=== PATIENT | male | born 1955 | race Caucasian/White ===

== ENCOUNTER 2017-08-19 13:19 | Inpatient (IN) | payer OTHER ==
[2017-08-19 14:06] VITALS: BMI 31.0
--- NOTE | 2017-08-19 16:48 | PDOC ---
Attending Attestation - HPI HPI: 08/19/17 17:38 The patient is a 62-year-old male, with a significant past medical history of NIDDM, Psoriasis, HTN who presents to the ED with rectal bleeding that began this morning. When the patient passed a bowel movement this morning and states that he noted his stool was dark red. While in the ED, the patient used the bathroom and states that the blood is now bright red. <Mayela Joseph - Last Filed: 08/19/17 17:38> - Resident Resident Name: Stanley Cardona - ED Attending Attestation I have performed the following: I have examined & evaluated the patient, The case was reviewed & discussed with the resident, I agree w/resident's findings & plan, Exceptions are as noted - Physicial Exam PE: 08/19/17 18:30 Patient is awake and alert, obese, hemodynamically stable, in no distress. Normocephalic, atraumatic PERRLA, EOMI, CTA, rrr sft, nt, nd - Medical Decision Making 08/19/17 18:31 Patient is a 62-year-old male with history of diabetes, psoriasis and heavy smoking who presents with several episodes of painless rectal bleeding with initially maroon blood followed by bright red blood per rectum. In the ER, patient is hemodynamically stable without evidence of active bleeding. Patient is noted to be guaiac positive. First CBC reveals H&H 14 and 43 respectively. I do not suspect ischemic colitis or inflammatory bowel disease at this time. Patient will require colonoscopy with GI. Will admit for serial CBCs, GI evaluation and treatment. <Balwinder Zuñiga - Last Filed: 08/19/17 18:32>
--- NOTE | 2017-08-19 17:21 | PDOC ---
History of Present Illness - General Chief Complaint: Rectal Bleed Stated Complaint: BLOOD IN URINE/ STOOL Time Seen by Provider: 08/19/17 16:48 - History of Present Illness Initial Comments: Mr Martino is a 62yo M with a PMHx of NIDDM, Psoriasis, HTN who presents w/ painless hematochezia since this morning. This morning it was dark red, but while going to bathroom in ER, noticed the blood was bright red. Denies prior constipation or straining. Denies hx of hemorrhoids. Not on anticoagulants. However, has taken multiple NSAIDs over the past 4 days for tooth pain. Daily 1 pack per day smoker. Last colonoscopy was [address] Quevedo, told it was normal. No hx of UC/Crohns. Denies abdominal pain. Denies hematemesis, hemoptysis. Allergies - NKDA SH - Daily 1ppd smoker. No alcohol PMD - Dr[facility] Shana Fritz ([facility]) Past History - Past Medical History Allergies/Adverse Reactions: Allergies Allergy/AdvReac Type Severity Reaction Status Date / Time No Known Allergies Allergy Verified 09/28/15 16:05 Home Medications: Ambulatory Orders Amlodipine Besylate [Norvasc -] 10 mg PO DAILY 08/19/17 Sitagliptin Phosphate [Januvia] 100 mg PO DAILY 08/19/17 Anemia: No Asthma: No Cancer: No Cardiac Disorders: No CVA: No COPD: No CHF: No Dementia: No Diabetes: Yes (NIDDM) GI Disorders: No Disorders: No HTN: Yes Hypercholesterolemia: Yes Liver Disease: No Seizures: No Thyroid Disease: No - Surgical History Abdominal Surgery: Yes (HERNIA) Appendectomy: Yes Cardiac Surgery: No Cholecystectomy: Yes Lung Surgery: No Neurologic Surgery: No Orthopedic Surgery: No - Suicide/Smoking/Psychosocial Hx Smoking Status: Yes Smoking History: Never smoked Have you smoked in the past 12 months: Yes Number of Cigarettes Smoked Daily: 5 If you are a former smoker, when did you quit?: 2 weeks ago 'Breaking Loose' booklet given: 02/02/15 Hx Alcohol Use: No Drug/Substance Use Hx: No Substance Use Type: None Hx Substance Use Treatment: No *Physical Exam - Vital Signs Last Vital Signs Temp Pulse Resp BP Pulse Ox 97.6 F 79 16 138/84 99 08/19/17 14:04 08/19/17 14:04 08/19/17 14:04 08/19/17 14:04 08/19/17 14:04 - Physical Exam Comments: GEN: AAOx3, NAD, Lying comfortably HEENT: PERRLA, EOMi CV: S1, S2, RRR LUNG: CTABL ABD: Soft, NT, ND, normoactive BS MSK: No edema, numerous psoriatic lesions on body : No visible external hemorrhoids, no fissures On GUZMAN, dark stool w/ streaks of blood NEURO: CN 2-12 intact. No MSK or sensation deficits ED Treatment Course - LABORATORY CBC & Chemistry Diagram: 08/19/17 17:20 08/19/17 17:33 Medical Decision Making - Medical Decision Making 62yo M who presented w/ painless melena after taking multiple NSAIDs, but now has BRBPR. Vitals are stable. No hemorrhoids/fissures on physical exam. DDx include: Diverticular bleed, Colitis, Colon CA. Because bleeding is non- painful, unlikely diagnosis includes IBD, Ischemic colitis -- CBC, CMP, Coags, T&S -- Prior colonoscopy performed by Dr. Quevedo, will place call to Dr. Quevedo -- Anticipate admission for possible scope. PCP is outside 08/19/17 18:[address] Millan. Case discussed and accepted Attempting to reach Dr. Quevedo second time. Dr. Zuñiga will takover the case from here. *DC/Admit/Observation/Transfer Diagnosis at time of Disposition: Hematochezia - Discharge Dispostion Condition at time of disposition: Stable Admit: Yes - Referrals Referrals: Shana Miner MD [Primary Care Provider] - - Patient Instructions - Post Discharge Activity
[2017-08-19 17:37] LABS: URINE APPEARANCE CLEAR; URINE BILIRUBIN NEGATIVE (NEGATIVE); URINE BLOOD NEGATIVE (NEGATIVE); URINE COLOR YELLOW; URINE GLUCOSE (UA) NEGATIVE (NEGATIVE); URINE KETONE NEGATIVE (NEGATIVE); URINE LEUK ESTERASE NEGATIVE (NEGATIVE); URINE NITRITE NEGATIVE (NEGATIVE); URINE UROBILINOGEN NEGATIVE mg/dL (0.2-1.0)
[2017-08-19 17:38] LABS: EOS % 3.1 % (0-4.5); HEMATOCRIT 43.3 % (35.4-49); HEMOGLOBIN 14.6 GM/dL (11.7-16.9); MCH 28.4 pg (25.7-33.7); MCHC 33.6 g/dl (32.0-35.9); MEAN CELL VOLUME 84.4 fl (80-96); MEAN PLT VOLUME 8.7 fl (7.5-11.1); NEUT % 70.9 % (42.8-82.8); PLATELET COUNT 261 K/MM3 (134-434); RBC 5.13 M/mm3 (4.00-5.60); WHITE BLOOD COUNT 10.3 K/mm3 (4.0-10.0)
[2017-08-19 17:39] LABS: URINE PROTEIN 1+ (NEGATIVE)
[2017-08-19 18:06] LABS: INR 0.93 (0.82-1.09); PROTHROMBIN TIME (PATIENT) 10.5 SEC (9.98-11.88)
[2017-08-19 18:16] LABS: ALBUMIN 4.1 g/dl (3.4-5.0); ALK PHOS 59 U/L (45-117); ANION GAP 9 (8-16); BILIRUBIN,TOTAL 0.4 mg/dL (0.2-1.0); BLOOD UREA NITROGEN 17 mg/dL (7-18); CALCIUM 8.6 mg/dL (8.5-10.1); CHLORIDE 108 mmol/L (98-107); CO2 25 mmol/L (21-32); CREATININE 0.9 mg/dL (0.7-1.3); GLUCOSE,RANDOM 107 mg/dL (74-106); POTASSIUM 4.2 mmol/L (3.5-5.1); SGOT/AST 20 U/L (15-37); SGPT/ALT 39 U/L (12-78); SODIUM 142 mmol/L (136-145); TOT PROT 7.5 g/dl (6.4-8.2)
[2017-08-19 19:02] LABS: EPI CELLS RARE /HPF (FEW); URINE BACTERIA RARE /hpf (NONE SEEN); URINE HYALINE CAST 2 /lpf; URINE MUCUS FEW
[2017-08-19] MEDS ORDERED: SODIUM CHLORIDE 1,000 ML IV SCH ×2 (19:15→21:30)
--- NOTE | 2017-08-19 21:38 | HP ---
CHIEF COMPLAINT: "I have blood in my stool" PCP:Dr. Shana Fritz ([facility]) HISTORY OF PRESENT ILLNESS: This is a 62yo M with a PMH of NIDDM, Psoriasis, HTN who presents due to 2 episodes of painless hematochezia since this morning. First BM had some dark blood and the second one had a smaller amount of bright red blood. both stools were well formed and patient reports being constipated a few days prior. He endorces having a similar episode once 7 yrs ago, whihc he attributed to hemorrhoids which were never officially diagnosed. he had a colonoscopy with Dr Quevedo 5-7 yrs ago which was unremarkable and was told to f/u in 5 yrs. Rectal exam in ed was negative for lesions but was occult blood positive. He denies abd pain, gerd, diarrhea, n/v, back pain, f/c, sick contacts. He denies weight loss. He denies cp, sob, cough, rhonorrhea, sore throat, myalgia, arthralgia. no family history of gi disorder. ER course was notable for: (1)labs (2)ekg, cxr:unremarkable (3)ivf Recent Travel: denies PAST MEDICAL HISTORY:as above PAST SURGICAL HISTORY: appendectomy, cholecystectomy 40 yrs ago Social History: lives at home with [id number] yrs Alcohol: denies Drugs: denies Family History: no history of GI cancer. Brother renal CA Allergies No Known Allergies Allergy (Verified 09/28/15 16:05) HOME MEDICATIONS: Home Medications Medication Instructions Recorded Amlodipine Besylate [Norvasc -] 10 mg PO DAILY 08/19/17 Sitagliptin Phosphate [Januvia] 100 mg PO DAILY 08/19/17 REVIEW OF SYSTEMS CONSTITUTIONAL: Absent: fever, chills, diaphoresis, generalized weakness, malaise, loss of appetite, weight change HEENT: Absent: rhinorrhea, nasal congestion, throat pain CARDIOVASCULAR: Absent: chest pain, syncope, palpitations, irregular heart rate, lightheadedness , peripheral edema RESPIRATORY: Absent: cough, shortness of breath, dyspnea with exertion, orthopnea, wheezing, stridor, hemoptysis GASTROINTESTINAL: Absent: abdominal pain, abdominal distension, nausea, vomiting, diarrhea, melena GENITOURINARY: Absent: dysuria, hematuria MUSCULOSKELETAL: Absent: myalgia, arthralgia SKIN: Absent: pallor HEMATOLOGIC/IMMUNOLOGIC: Absent: easy bleeding, easy bruising ENDOCRINE: Absent: unexplained weight gain, unexplained weight loss, heat intolerance, cold intolerance NEUROLOGIC: Absent: headache, focal weakness or paresthesias PSYCHIATRIC: Absent: anxiety, depression PHYSICAL EXAMINATION Vital Signs - 24 hr 08/19/17 08/19/17 08/19/17 14:04 17:47 19:18 Temperature 97.6 F Pulse Rate 79 Pulse Rate [ 70 75 Radial] Respiratory 16 16 17 Rate Blood Pressure 138/84 Blood Pressure 135/80 136/82 [Left Arm] O2 Sat by Pulse 99 96 98 Oximetry (%) GENERAL: Awake, alert, and fully oriented, in no acute distress. HEAD: Normal with no signs of trauma. EYES: Pupils equal, round and reactive to light, extraocular movements intact, sclera anicteric, conjunctiva clear. No lid lag. EARS, NOSE, THROAT: Moist mucous membranes. NECK: supple LUNGS: Breath sounds equal, clear to auscultation bilaterally. HEART: Regular rate and rhythm, normal S1 and S2 ABDOMEN: obese, RLW surgical scar, eczema, Soft, nontender, not distended, normoactive bowel sounds, no guarding, no rebound, no masses. RECTAL EXAM: no lesions noted per ED MUSCULOSKELETAL: No CVA tenderness. UPPER EXTREMITIES: 2+ pulses, warm, well-perfused. No peripheral edema. LOWER EXTREMITIES: 2+ pulses, warm, well-perfused. No calf tenderness. No peripheral edema. NEUROLOGICAL: Cranial nerves II-XII grossly intact. Normal speech. Normal gait. PSYCHIATRIC: Cooperative. Good eye contact. Appropriate mood and affect. SKIN: diffuse eczema, Warm, dry, normal turgor Laboratory Results - last 24 hr 08/19/17 08/19/17 08/19/17 17:01 17:20 17:20 WBC 10.3 H RBC 5.13 Hgb 14.6 Hct 43.3 MCV 84.4 MCH 28.4 MCHC 33.6 RDW 14.0 Plt Count 261 MPV 8.7 Neutrophils % 70.9 Lymphocytes % 19.0 D Monocytes % 6.0 Eosinophils % 3.1 D Basophils % 1.0 PT with INR INR Sodium Potassium Chloride Carbon Dioxide Anion Gap BUN Creatinine Creat Clearance w eGFR Random Glucose Calcium Total Bilirubin AST ALT Alkaline Phosphatase Total Protein Albumin Urine Color Yellow Urine Appearance Clear Urine pH 5.0 Ur Specific [place] 1.021 Urine Protein 1+ H Urine Glucose (UA) Negative Urine Ketones Negative Urine Blood Negative Urine Nitrite Negative Urine Bilirubin Negative Urine Urobilinogen Negative Ur Leukocyte Esterase Negative Urine WBC (Auto) 1 Urine RBC (Auto) 1 Ur Epithelial Cells Rare Urine Bacteria Rare Hyaline Casts 2 Urine Mucus Few Stool Occult Blood Positive Blood Type Antibody Screen Crossmatch 08/19/17 08/19/17 08/19/17 17:20 17:33 17:33 WBC RBC Hgb Hct MCV MCH MCHC RDW Plt Count MPV Neutrophils % Lymphocytes % Monocytes % Eosinophils % Basophils % PT with INR 10.50 INR 0.93 Sodium 142 Potassium 4.2 Chloride 108 H Carbon Dioxide 25 Anion Gap 9 BUN 17 Creatinine 0.9 Creat Clearance w eGFR > 60 Random Glucose 107 H D Calcium 8.6 Total Bilirubin 0.4 D AST 20 D ALT 39 Alkaline Phosphatase 59 Total Protein 7.5 Albumin 4.1 Urine Color Urine Appearance Urine pH Ur Specific [place] Urine Protein Urine Glucose (UA) Urine Ketones Urine Blood Urine Nitrite Urine Bilirubin Urine Urobilinogen Ur Leukocyte Esterase Urine WBC (Auto) Urine RBC (Auto) Ur Epithelial Cells Urine Bacteria Hyaline Casts Urine Mucus Stool Occult Blood Blood Type AB POSITIVE Antibody Screen Negative Crossmatch See Detail ASSESSMENT/PLAN: This is a 62yo M with a PMH of NIDDM, Psoriasis, HTN who presents due to 2 episodes of painless hematochezia since this morning. Lower GIB -upper gi source unlikely -possible sources include diverticulosis, av malformation, r/o CA -NPO, anticipate scope -IVF hydration -GI consulted -monitor h/h (stable at this time) -patient hemodynamically stable -avoid a/c HTN -resume home [facility] NIDDM -ISS, BGM, A1c Eczema -topical hydrocortisone cream Dispo: adm m/s Visit type - Emergency Visit Emergency Visit: Yes ED Registration Date: 08/19/17 Care time: The patient presented to the Emergency Department on the above date and was hospitalized for further evaluation of their emergent condition. - New Patient This patient is new to me today: Yes Date on this admission: 08/19/17 - Critical Care Critical Care patient: No
[2017-08-19] MEDS: INSULIN SLIDING SCALE (NOVOLOG) 1 VIAL SQ SCH (21:46)
--- NOTE | 2017-08-19 21:52 | PN ---
Teaching Attending Note Name of Resident: Susan Cuevas ATTENDING PHYSICIAN STATEMENT I saw and evaluated the patient. Chart, data, imaging reviewed. I reviewed the resident's note and discussed the case with the resident. I agree with the resident's findings and plan as documented. SUBJECTIVE: 62yo M with a PMHx of NIDDM, Psoriasis, HTN c/o 2 BMs on 08/19/16 with bright red blood. BMs were painless, formed. Amount of blood was small, not enough to fill small cup. There was no LOC or dizziness. No major changes in diet. GI was called, planned for colonoscopy. Last colonoscopy was 5 years ago and reportedly normal. Patient reported 2 days of NSAID use prior to presentation. Denied any epigastric pain or history of gastritis or PUD. GUZMAN performed in ER and did not show external hemorrhoids. OBJECTIVE: Last Vital Signs Temp Pulse Resp BP Pulse Ox 97.6 F 75 17 136/82 98 08/19/17 14:04 08/19/17 19:18 08/19/17 19:18 08/19/17 19:18 08/19/17 19:18 general- comfortable, nad, obese heent- no sinus tenderness, moist oral mucosa neck -supple, no masses cv -s1+s2+ rrr chest - cta b/l abdomen- soft, nt, no masses, obese ext -no pedal edema CXR -reviewed, clear costophrenic angles Abnormal Lab Results 08/19/17 08/19/17 08/19/17 17:20 17:20 17:33 WBC 10.3 H Chloride 108 H Random Glucose 107 H D Urine Protein 1+ H Crossmatch 08/19/17 17:33 WBC Chloride Random Glucose Urine Protein Crossmatch See Detail ASSESSMENT AND PLAN: #Painless bright red blood per rectum in a 62yo man. VS are stable and Hemoglobin and hematocrit normal stable. Differential diagnosis included internal hemorroids, AV malformation, diverticulosis. -admit to med/surg obs -monitor H,H -GI consult for colonoscopy -no heparin or NSAIDs -NPO past midnight -continue home meds for chronic medical problems -SCDs for DVT ppx
[2017-08-19] MEDS ORDERED: HYDROCORTISONE 2.5% LOTION - 1 BOTTLE TP PRN (21:53)
[2017-08-19] MEDS: NICOTINE 21 MG/24 HOURS TOPICAL PATCH TD SCH (22:18)
[2017-08-20 06:04] LABS: EOS % 4.3 % (0-4.5); HEMATOCRIT 41.3 % (35.4-49); HEMOGLOBIN 13.8 GM/dL (11.7-16.9); LYMPH % 19.9 % (8-40); MCH 28.2 pg (25.7-33.7); MCHC 33.4 g/dl (32.0-35.9); MEAN CELL VOLUME 84.5 fl (80-96); MEAN PLT VOLUME 8.7 fl (7.5-11.1); MONO % 7.1 % (3.8-10.2); NEUT % 67.7 % (42.8-82.8); PLATELET COUNT 235 K/MM3 (134-434); RBC 4.88 M/mm3 (4.00-5.60); RDW 13.9 % (11.9-15.9); WHITE BLOOD COUNT 8.5 K/mm3 (4.0-10.0)
[2017-08-20 06:32] LABS: ANION GAP 5 (8-16); BLOOD UREA NITROGEN 15 mg/dL (7-18); CALCIUM 8.6 mg/dL (8.5-10.1); CHLORIDE 107 mmol/L (98-107); CO2 30 mmol/L (21-32); CREATININE 0.9 mg/dL (0.7-1.3); GLUCOSE,RANDOM 117 mg/dL (74-106); MAGNESIUM 2.1 mg/dL (1.8-2.4); PHOSPHOROUS 3.1 mg/dL (2.5-4.9); POTASSIUM 4.2 mmol/L (3.5-5.1); SODIUM 142 mmol/L (136-145)
[2017-08-20] MEDS: INSULIN SLIDING SCALE (NOVOLOG) 1 VIAL SQ SCH ×2 (06:57→11:58)
[2017-08-20] MEDS ORDERED: amLODIPine BESYLATE 10 MG TABLET (FP) PO SCH (10:00)
[2017-08-20 10:36] VITALS: PULSE 70; TEMP 98.1
[2017-08-20] MEDS: NICOTINE 21 MG/24 HOURS TOPICAL PATCH TD SCH (10:59)
--- NOTE | 2017-08-20 12:18 | EKG ---
Test Reason : Blood Pressure : / mmHG Vent. Rate : 071 BPM Atrial Rate : 071 BPM P-R Int : 168 ms QRS Dur : 094 ms QT Int : 422 ms P-R-T Axes : 051 039 043 degrees QTc Int : 458 ms NORMAL SINUS RHYTHM POSSIBLE LEFT ATRIAL ENLARGEMENT BORDERLINE ECG WHEN COMPARED WITH ECG OF 02-FEB-2015 13:49, NO SIGNIFICANT CHANGE WAS FOUND Confirmed by MD SALUD, STEPHANY ([id number]) on 08/20/2017 12:18:49 PM Referred By: Confirmed By:STEPHANY BRANNON MD
--- NOTE | 2017-08-20 14:02 | CON.GI ---
Consult Consult Specialty:: gastroenterology Referred by:: hospitalist - Past Medical History Cardio/Vascular: Yes: HTN Gastrointestinal: Yes: Other (umbilical hernia) Endocrine: Yes: Diabetes Mellitus Dermatology: Yes: Psoriasis - Alcohol/Substance Use Hx Alcohol Use: No - Smoking History Smoking history: Never smoked Have you smoked in the past 12 months: Yes Aproximately how many cigarettes per day: 5 If you are a former smoker, when did you quit?: 2 weeks ago - Social History ADL: Independent Home Medications - Allergies Allergies/Adverse Reactions: Allergies Allergy/AdvReac Type Severity Reaction Status Date / Time No Known Allergies Allergy Verified 09/28/15 16:05 - Home Medications Home Medications: Ambulatory Orders Amlodipine Besylate [Norvasc -] 10 mg PO DAILY 08/19/17 Sitagliptin Phosphate [Januvia] 100 mg PO DAILY 08/19/17 Family Disease History - Family Disease History Family Disease History: CA: Brother (Unknown type) Physical Exam-GI Vital Signs: Vital Signs Temperature 98.1 F 08/20/17 10:00 Pulse Rate 70 08/20/17 10:00 Respiratory Rate 20 08/20/17 10:00 Blood Pressure 114/91 08/20/17 10:00 O2 Sat by Pulse Oximetry (%) 98 08/20/17 09:00 Labs: CBC, BMP 08/20/17 05:50 08/20/17 05:50 INR, PTT INR 0.93 (0.82-1.09) 08/19/17 17:20
[2017-08-20 14:06] VITALS: BP 112/57
--- NOTE | 2017-08-20 14:29 | DS ---
Physical Exam: SUBJECTIVE: Patient seen and examined. has had 2 soft, brown BM today. admits to straining for the past few days. had 3 episodes of BRBPR where it was not mixed in the stool. had colonoscopy 5 years ago, [facility] he was told he had hemrrhoids but states "inside I was clean". denies CP, SOB, fever, chills, N/V/C /D OBJECTIVE: Vital Signs Period Temp Pulse Resp BP Sys/Cole Pulse Ox Last 24 Hr 98.0 F-98.6 F 68-87 16-20 110-136/57-91 96-98 PHYSICAL EXAM GENERAL: The patient is awake, alert, and fully oriented, in no acute distress. HEAD: Normal with no signs of trauma. EYES: PERRL, extraocular movements intact, sclera anicteric, conjunctiva clear. ENT: Ears normal, nares patent, oropharynx clear without exudates, moist mucous membranes. NECK: Trachea midline, full range of motion, supple. LUNGS: Breath sounds equal, clear to auscultation bilaterally, no wheezes, no crackles, no accessory muscle use. HEART: Regular rate and rhythm, S1, S2 without murmur, rub or gallop. ABDOMEN: Soft, nontender, nondistended, normoactive bowel sounds, no guarding, no rebound, no hepatosplenomegaly, no masses. obese. refused rectal exam EXTREMITIES: 2+ pulses, warm, well-perfused, no edema. NEUROLOGICAL: Cranial nerves II through XII grossly intact. Normal speech, gait not observed. PSYCH: Normal mood, normal affect. SKIN: Warm, dry, normal turgor, no rashes or lesions noted. LABS Laboratory Results - last 24 hr 08/19/17 08/19/17 08/19/17 17:01 17:20 17:20 WBC 10.3 H RBC 5.13 Hgb 14.6 Hct 43.3 MCV 84.4 MCH 28.4 MCHC 33.6 RDW 14.0 Plt Count 261 MPV 8.7 Neutrophils % 70.9 Lymphocytes % 19.0 D Monocytes % 6.0 Eosinophils % 3.1 D Basophils % 1.0 PT with INR INR Sodium Potassium Chloride Carbon Dioxide Anion Gap BUN Creatinine Creat Clearance w eGFR POC Glucometer Random Glucose Hemoglobin A1c % Calcium Phosphorus Magnesium Total Bilirubin AST ALT Alkaline Phosphatase Total Protein Albumin Urine Color Yellow Urine Appearance Clear Urine pH 5.0 Ur Specific [place] 1.021 Urine Protein 1+ H Urine Glucose (UA) Negative Urine Ketones Negative Urine Blood Negative Urine Nitrite Negative Urine Bilirubin Negative Urine Urobilinogen Negative Ur Leukocyte Esterase Negative Urine WBC (Auto) 1 Urine RBC (Auto) 1 Ur Epithelial Cells Rare Urine Bacteria Rare Hyaline Casts 2 Urine Mucus Few Stool Occult Blood Positive Blood Type Antibody Screen Crossmatch 08/19/17 08/19/17 08/19/17 17:20 17:33 17:33 WBC RBC Hgb Hct MCV MCH MCHC RDW Plt Count MPV Neutrophils % Lymphocytes % Monocytes % Eosinophils % Basophils % PT with INR 10.50 INR 0.93 Sodium 142 Potassium 4.2 Chloride 108 H Carbon Dioxide 25 Anion Gap 9 BUN 17 Creatinine 0.9 Creat Clearance w eGFR > 60 POC Glucometer Random Glucose 107 H D Hemoglobin A1c % Calcium 8.6 Phosphorus Magnesium Total Bilirubin 0.4 D AST 20 D ALT 39 Alkaline Phosphatase 59 Total Protein 7.5 Albumin 4.1 Urine Color Urine Appearance Urine pH Ur Specific [place] Urine Protein Urine Glucose (UA) Urine Ketones Urine Blood Urine Nitrite Urine Bilirubin Urine Urobilinogen Ur Leukocyte Esterase Urine WBC (Auto) Urine RBC (Auto) Ur Epithelial Cells Urine Bacteria Hyaline Casts Urine Mucus Stool Occult Blood Blood Type AB POSITIVE Antibody Screen Negative Crossmatch See Detail 08/19/17 08/20/17 08/20/17 21:45 05:50 05:50 WBC 8.5 RBC 4.88 Hgb 13.8 Hct 41.3 MCV 84.5 MCH 28.2 MCHC 33.4 RDW 13.9 Plt Count 235 MPV 8.7 Neutrophils % 67.7 Lymphocytes % 19.9 Monocytes % 7.1 Eosinophils % 4.3 Basophils % 1.0 PT with INR INR Sodium 142 Potassium 4.2 Chloride 107 Carbon Dioxide 30 Anion Gap 5 L BUN 15 Creatinine 0.9 Creat Clearance w eGFR POC Glucometer 110.17212 Random Glucose 117 H Hemoglobin A1c % Calcium 8.6 Phosphorus 3.1 Magnesium 2.1 Total Bilirubin AST ALT Alkaline Phosphatase Total Protein Albumin Urine Color Urine Appearance Urine pH Ur Specific [place] Urine Protein Urine Glucose (UA) Urine Ketones Urine Blood Urine Nitrite Urine Bilirubin Urine Urobilinogen Ur Leukocyte Esterase Urine WBC (Auto) Urine RBC (Auto) Ur Epithelial Cells Urine Bacteria Hyaline Casts Urine Mucus Stool Occult Blood Blood Type Antibody Screen Crossmatch 08/20/17 08/20/17 08/20/17 05:50 06:55 11:52 WBC RBC Hgb Hct MCV MCH MCHC RDW Plt Count MPV Neutrophils % Lymphocytes % Monocytes % Eosinophils % Basophils % PT with INR INR Sodium Potassium Chloride Carbon Dioxide Anion Gap BUN Creatinine Creat Clearance w eGFR POC Glucometer 119 126 Random Glucose Hemoglobin A1c % 7.6 H Calcium Phosphorus Magnesium Total Bilirubin AST ALT Alkaline Phosphatase Total Protein Albumin Urine Color Urine Appearance Urine pH Ur Specific [place] Urine Protein Urine Glucose (UA) Urine Ketones Urine Blood Urine Nitrite Urine Bilirubin Urine Urobilinogen Ur Leukocyte Esterase Urine WBC (Auto) Urine RBC (Auto) Ur Epithelial Cells Urine Bacteria Hyaline Casts Urine Mucus Stool Occult Blood Blood Type Antibody Screen Crossmatch HOSPITAL COURSE: Date of Admission:08/19/17 Date of Discharge: 08/20/17 Admitting diagnosis: BRBPR Pre hospital course 62yo M with a PMH of NIDDM, Psoriasis, HTN who presents due to 2 episodes of painless hematochezia since this morning. First BM had some dark blood and the second one had a smaller amount of bright red blood. both stools were well formed and patient reports being constipated a few days prior. He endorces having a similar episode once 7 yrs ago, whc he attributed to hemorrhoids which were never officially diagnosed. he had a colonoscopy with Dr Quevedo 5-7 yrs ago which was unremarkable and was told to f/u in 5 yrs. Rectal exam in ed was negative for lesions but was occult blood positive. He denies abd pain, gerd , diarrhea, n/v, back pain, f/c, sick contacts. He denies weight loss. He denies cp, sob, cough, rhonorrhea, sore throat, myalgia, arthralgia. no family history of gi disorder. Subsequent hospital course Admitted to medicine. was made NPO and started on IVF. pt had 2 normal BM today without blood. no abdominal pain. diet was advanced and tolerated well. hgb remained stable. spoke with Dr Quevedo who states pt can follow up in his office next week to schedule colonoscopy. pt verbalized understanding with plan. d/c home Minutes to complete discharge: 40 Discharge Summary Reason For Visit: HEMATOCHEZIA Current Active Problems Hematochezia (Acute) Condition: Stable - Instructions Referrals: Shana Miner MD [Primary Care Provider] - - Home Medications Comprehensive Discharge Medication List: Ambulatory Orders Amlodipine Besylate [Norvasc -] 10 mg PO DAILY 08/19/17 Sitagliptin Phosphate [Januvia] 100 mg PO DAILY 08/19/17 This patient is new to me today: Yes Date on this admission: 08/20/17 Emergency Visit: Yes ED Registration Date: 08/19/17 Care time: The patient presented to the Emergency Department on the above date and was hospitalized for further evaluation of their emergent condition. Critical Care patient: No - Discharge Referral Referred to [facility] No
== END 2017-08-20 14:46 | disposition home or self-care (01) | DRG 253 ==
LOC: JER 13:19 → JERBED 18:56
PROVIDERS: ADMIT Internal Medicine; ATTEND Internal Medicine
DX: K92.2 Gastrointestinal hemorrhage, unspecified (principal); I10 Essential (primary) hypertension; E11.9 Type 2 diabetes mellitus without complications; L30.9 Dermatitis, unspecified
CPT/HCPCS: 36415; 71045-TC; 80048; 80053; 81003; 81015; 82272; 82962; 83036; 83735; 84100; 85025; 85610; 86850; 86900; 86901; 86922; 87086; 93005; 93010; 99285-25

== ENCOUNTER 2018-05-25 18:35 | Emergency (ER) | payer OTHER ==
--- NOTE | 2018-05-25 19:02 | PDOC ---
Rapid Medical Evaluation Chief Complaint: Pain Time Seen by Provider: 05/25/18 18:57 Medical Evaluation: Allergies Allergy/AdvReac Type Severity Reaction Status Date / Time No Known Allergies Allergy Verified 09/28/15 16:05 05/25/18 18:58 I have performed a brief in person evaluation of this patient. The patient presents with a CC of: right hip pain Pt is a 62 YO male who complains of right hip pain x 1 day. Pt states that he has had an xray and MRI of the right hip via his PCP and they were negative. PE: Ambulated to triage Skin: clear Lungs: Clear Heart: RRR MS: Moves all extremities without difficulty. Psych: Age appropriate. Right hip xray ordered. The patient will proceed to the ED for further evaluation. Discharge Disposition - Diagnosis Hip pain Qualifiers: Laterality: right Qualified Code(s): M25.551 - Pain in right hip - Referrals - Patient Instructions - Post Discharge Activity
[2018-05-25 19:04] VITALS: BP 179/90; PULSE 106; TEMP 98; BMI 29.4
[2018-05-25 19:50] LABS: URINE APPEARANCE CLEAR; URINE BILIRUBIN NEGATIVE (<2.0 mg/dL); URINE COLOR YELLOW; URINE GLUCOSE (UA) 1+ (NEGATIVE); URINE KETONE NEGATIVE (NEGATIVE); URINE LEUK ESTERASE NEGATIVE (NEGATIVE); URINE NITRITE NEGATIVE (NEGATIVE); URINE PROTEIN 2+ (NEGATIVE); URINE UROBILINOGEN NEGATIVE mg/dL (0.2-1.0)
[2018-05-25 19:54] LABS: EPI CELLS RARE /HPF (FEW); URINE MUCUS RARE
[2018-05-25] MEDS ORDERED: KETOROLAC TROMETHAMINE 60 MG/2 ML VIAL IM ONE (20:50)
--- NOTE | 2018-05-25 20:50 | PDOC ---
History of Present Illness - General Chief Complaint: Pain Stated Complaint: RT HIP PAIN Time Seen by Provider: 05/25/18 18:57 History Source: Patient Past History - Past Medical History Allergies/Adverse Reactions: Allergies Allergy/AdvReac Type Severity Reaction Status Date / Time No Known Allergies Allergy Verified 05/25/18 18:58 Home Medications: Ambulatory Orders NK [No Known Home Medication] 05/25/18 Anemia: No Asthma: No Cancer: No Cardiac Disorders: No CVA: No COPD: No CHF: No DVT: No Dementia: No Diabetes: Yes (NIDDM) GI Disorders: No Disorders: No HTN: Yes Hypercholesterolemia: Yes Liver Disease: No Seizures: No Thyroid Disease: No - Surgical History Abdominal Surgery: Yes (HERNIA) Appendectomy: Yes Cardiac Surgery: No Cholecystectomy: Yes Lung Surgery: No Neurologic Surgery: No Orthopedic Surgery: No - Suicide/Smoking/Psychosocial Hx Smoking Status: Yes Smoking History: Never smoked Have you smoked in the past 12 months: Yes Number of Cigarettes Smoked Daily: 10 If you are a former smoker, when did you quit?: 2 weeks ago Information on smoking cessation initiated: No 'Breaking Loose' booklet given: 02/02/15 Hx Alcohol Use: No Drug/Substance Use Hx: No Substance Use Type: None Hx Substance Use Treatment: No *Physical Exam - Vital Signs Last Vital Signs Temp Pulse Resp BP Pulse Ox 98.0 F 106 H 18 179/90 H 100 05/25/18 18:59 05/25/18 18:59 05/25/18 18:59 05/25/18 18:59 05/25/18 18:59 ED Treatment Course - ADDITIONAL ORDERS Additional order review: Laboratory Results 05/25/18 15:23 Urine Color Yellow Urine Appearance Clear Urine pH 5.0 Ur Specific [place] 1.020 Urine Protein 2+ H Urine Glucose (UA) 1+ H Urine Ketones Negative Urine Blood 1+ H Urine Nitrite Negative Urine Bilirubin Negative Urine Urobilinogen Negative Ur Leukocyte Esterase Negative Urine WBC (Auto) 1 Urine RBC (Auto) 1 Ur Epithelial Cells Rare Urine Mucus Rare *DC/Admit/Observation/Transfer Diagnosis at time of Disposition: Hip pain Qualifiers: Laterality: right Qualified Code(s): M25.551 - Pain in right hip - Discharge Dispostion Disposition: HOME Condition at time of disposition: Stable Decision to Admit order: No - Referrals Referrals: Shana Miner MD [Primary Care Provider] - - Patient Instructions Printed Discharge Instructions: DI for Hip Pain Additional Instructions: Your x-ray is negative for fractures You most likely have some form arthritis Please take Motrin 800mg every 8 hours not to exceed 3,000mg a day You may take the flexeril at night before bed. Do not drive after taking this medication as is may make you sleepy Follow up with your primary care doctor this week Return to the ED for any new or worsening symptoms - Post Discharge Activity
[2018-05-25] MEDS ORDERED: KETOROLAC TROMETHAMINE 60 MG/2 ML VIAL ONE (20:53)
== END 2018-05-25 21:28 | disposition home or self-care (01) ==
LOC: JERFT 18:35
PROC: 3E0233Z Introduction of Anti-inflammatory into Muscle, Percutaneous Approach (ICD-10-PCS; principal; 2018-05-25)
DX: M25.551 Pain in right hip (principal); I10 Essential (primary) hypertension; E78.00 Pure hypercholesterolemia, unspecified; E11.9 Type 2 diabetes mellitus without complications; Z79.84 Long term (current) use of oral hypoglycemic drugs
CPT/HCPCS: 73523-TC-FY; 81003; 81015; 99281-25

== ENCOUNTER 2019-01-12 16:54 | Emergency (ER) | payer OTHER ==
--- NOTE | 2019-01-12 16:59 | PDOC ---
Rapid Medical Evaluation Time Seen by Provider: 01/12/19 16:57 Medical Evaluation: Allergies Allergy/AdvReac Type Severity Reaction Status Date / Time No Known Allergies Allergy Verified 01/12/19 16:57 01/12/19 16:58 I have performed a brief in-person evaluation of this patient. The patient presents with a chief complaint of:burning w/ urination x 3 days and "does not feel right" per pt. No abd pain/flank pain, n/v/f/c. H/o HTN, NIDDM, renal stones BPH, psoriases Pertinent physical exam findings:Stable and well brian I have ordered the following:labs/ua The patient will proceed to the ED for further evaluation. Discharge Disposition - Diagnosis Dysuria - Referrals - Patient Instructions - Post Discharge Activity
[2019-01-12 17:02] VITALS: BP 150/74; PULSE 81; TEMP 98; BMI 31.0
--- NOTE | 2019-01-12 17:19 | PDOC ---
History of Present Illness - General Chief Complaint: Urinary Problem Stated Complaint: UTI Time Seen by Provider: 01/12/19 16:57 - History of Present Illness Initial Comments: 01/12/19 22:58 Chief complaint: Dysuria Patient is a 63-year-old male with a history of NIDDM, psoriasis, patient recently started on medication for psoriasis, about a month ago. Patient complaining of 3 days of pain on urination, no fever, no back pain, no discharge. Patient states she has not been sexually active in 2 years. GENERAL/CONSTITUTIONAL: No fever, weakness. dizziness HEAD, EYES, EARS, NOSE AND THROAT: No change in vision. No ear pain or discharge. No sore throat. CARDIOVASCULAR: No chest pain RESPIRATORY: No shortness of breath or cough GASTROINTESTINAL: No pain, nausea, vomiting, diarrhea or constipation GENITOURINARY: +dysuria MUSCULOSKELETAL: No neck or back pain SKIN: No rash NEUROLOGIC: No headache, vertigo, loss of consciousness, or loss of sensation. GENERAL: The patient is awake, alert, and fully oriented, in no acute distress. HEAD: Normal with no signs of trauma. EYES: Pupils equal, round and reactive to light, sclera anicteric, conjunctiva clear. ENT: pharynx: no erythema, no exudate, uvula midline NECK: supple CHEST: clear, nontender, rr ABD: soft, nontender BACK: no tenderness or signs of injury EXTREMITIES: Normal range of motion, no edema. NEUROLOGICAL: Normal speech, normal gait. SKIN: Warm, Dry Past History - Past Medical History Allergies/Adverse Reactions: Allergies Allergy/AdvReac Type Severity Reaction Status Date / Time No Known Allergies Allergy Verified 01/12/19 16:57 Home Medications: Ambulatory Orders Apremilast [Otezla] 30 mg PO ASDIR 01/12/19 Cefpodoxime Proxetil [Vantin -] 200 mg PO Q12H #14 tablet 01/12/19 Tamsulosin HCl [Flomax] 0.4 mg PO DAILY 01/12/19 Anemia: No Asthma: No Cancer: No Cardiac Disorders: No CVA: No COPD: No CHF: No DVT: No Dementia: No Diabetes: Yes (NIDDM) GI Disorders: No Disorders: No HTN: Yes Hypercholesterolemia: Yes Liver Disease: No Seizures: No Thyroid Disease: No - Surgical History Abdominal Surgery: Yes (HERNIA) Appendectomy: Yes Cardiac Surgery: No Cholecystectomy: Yes Lung Surgery: No Neurologic Surgery: No Orthopedic Surgery: No - Suicide/Smoking/Psychosocial Hx Smoking Status: Yes Smoking History: Current every day smoker Have you smoked in the past 12 months: Yes Number of Cigarettes Smoked Daily: 10 If you are a former smoker, when did you quit?: 2 weeks ago Information on smoking cessation initiated: No 'Breaking Loose' booklet given: 02/02/15 Hx Alcohol Use: No Drug/Substance Use Hx: No Substance Use Type: None Hx Substance Use Treatment: No *Physical Exam - Vital Signs Last Vital Signs Temp Pulse Resp BP Pulse Ox 98 F 81 18 150/74 97 01/12/19 16:58 01/12/19 16:58 01/12/19 16:58 01/12/19 16:58 01/12/19 16:58 ED Treatment Course - LABORATORY CBC & Chemistry Diagram: 01/12/19 17:45 01/12/19 17:45 Medical Decision Making - Medical Decision Making 63-year-old male with history of NIDDM, on metformin, with 3 days of dysuria. Patient also has psoriasis and is on otezla. Patient appears well, no fever, no back aches or other concerning clinical findings. Patient will get basic labs, check kidney function, check glucose level, check urine 01/12/19 23:04 Labs are stable, UA shows small amount of white cells, given symptoms, will treat with Vantin, have patient follow-up with his doctor on Tuesday, strict return instructions. *DC/Admit/Observation/Transfer Diagnosis at time of Disposition: Dysuria - Discharge Dispostion Disposition: HOME Condition at time of disposition: Stable - Prescriptions Prescriptions: Cefpodoxime Proxetil [Vantin -] 200 mg PO Q12H #14 tablet - Referrals Schedule a call back: call patient please - Patient Instructions Additional Instructions: Drink 2-3 L of water daily Take the vantin 1 tab twice a day for 7 days take Acidophilus to help prevent yeast infection or stomach upset Return ER if fever, vomiting, feeling sicker Follow-up with your doctor in 2-3 days - Post Discharge Activity
[2019-01-12 17:59] LABS: BASO % 0.6 % (0-2.0); EOS % 1.6 % (0-4.5); HEMATOCRIT 42.6 % (35.4-49); HEMOGLOBIN 14.3 GM/dL (11.7-16.9); LYMPH % 12.5 % (8-40); MCH 28.7 pg (25.7-33.7); MCHC 33.6 g/dl (32.0-35.9); MEAN CELL VOLUME 85.4 fl (80-96); MEAN PLT VOLUME 8.8 fl (7.5-11.1); MONO % 5.2 % (3.8-10.2); NEUT % 80.1 % (42.8-82.8); PLATELET COUNT 256 K/MM3 (134-434); RBC 4.99 M/mm3 (4.00-5.60); RDW 14.2 % (11.9-15.9); WHITE BLOOD COUNT 14.8 K/mm3 (4.0-10.0)
[2019-01-12 18:20] LABS: EPI CELLS 1.3 /HPF (0-5/HPF); HYALINE CASTS 14 /lpf (0-8); URINE APPEARANCE CLEAR; URINE BACTERIA 1.9 /hpf (NEGATIVE); URINE BILIRUBIN NEGATIVE (NEGATIVE); URINE COLOR YELLOW; URINE GLUCOSE (UA) NEGATIVE (NEGATIVE); URINE KETONE NEGATIVE (NEGATIVE); URINE LEUK ESTERASE NEGATIVE (NEGATIVE); URINE NITRITE NEGATIVE (NEGATIVE); URINE PROTEIN 2+ (NEGATIVE); URINE RBC 1 /hpf (0-4); URINE UROBILINOGEN 0.2 mg/dL (0.2-1.0); URINE WBC 2 /hpf (0-5)
[2019-01-12 18:22] LABS: ALBUMIN 3.8 g/dl (3.4-5.0); BILIRUBIN,TOTAL 0.2 mg/dL (0.2-1); BLOOD UREA NITROGEN 23.2 mg/dL (7-18); CALCIUM 9.2 mg/dL (8.5-10.1); POTASSIUM 4.2 mmol/L (3.5-5.1); TOT PROT 7.4 g/dl (6.4-8.2)
== END 2019-01-12 19:15 | disposition home or self-care (01) ==
LOC: JERFT 16:54 → JER 16:54 → JERFT 19:15
DX: R30.0 Dysuria (principal); I10 Essential (primary) hypertension; E11.9 Type 2 diabetes mellitus without complications; Z79.84 Long term (current) use of oral hypoglycemic drugs; N40.0 Benign prostatic hyperplasia without lower urinary tract symptoms; E78.00 Pure hypercholesterolemia, unspecified; F17.210 Nicotine dependence, cigarettes, uncomplicated
CPT/HCPCS: 36415; 80053; 81003; 82962; 85025; 87086; 87491; 87591; 99282-25

== ENCOUNTER 2019-01-28 09:41 | Observation (INO) | payer OTHER ==
[2019-01-28] MEDS ORDERED: ASPIRIN 81 MG CHEWABLE TABLETS PO ONE (10:32)
[2019-01-28] MEDS ORDERED: FAMOTIDINE 20 MG/50 ML IVPB 20 MG/50 ML MG IVPB ONE ×2 (10:32→10:50)
[2019-01-28] MEDS ORDERED: MAG HYDROX/AL HYDROX/SIMETH 30 ML UNIT-DOSE CUP PO ONE (10:32)
[2019-01-28] MEDS ORDERED: MAG HYDROX/AL HYDROX/SIMETH 30 ML UNIT-DOSE CUP ONE (10:43)
[2019-01-28] MEDS ORDERED: ASPIRIN 81 MG CHEWABLE TABLETS ONE (10:43)
[2019-01-28 11:21] LABS: BASO % 0.7 % (0-2.0); EOS % 3.6 % (0-4.5); HEMATOCRIT 42.4 % (35.4-49); HEMOGLOBIN 14.2 GM/dL (11.7-16.9); LYMPH % 18.5 % (8-40); MCH 28.5 pg (25.7-33.7); MCHC 33.4 g/dl (32.0-35.9); MEAN CELL VOLUME 85.1 fl (80-96); MEAN PLT VOLUME 8.7 fl (7.5-11.1); MONO % 6.1 % (3.8-10.2); NEUT % 71.1 % (42.8-82.8); RBC 4.99 M/mm3 (4.00-5.60); RDW 14.2 % (11.9-15.9)
[2019-01-28 11:34] LABS: PLATELET COUNT 223 K/MM3 (134-434)
[2019-01-28 11:53] LABS: INR 0.88 (0.83-1.09); PROTHROMBIN TIME (PATIENT) 10.4 SEC (9.7-13.0)
--- NOTE | 2019-01-28 12:03 | PDOC ---
Documentation entered by Zuleyma Wayne SCRIBE, acting as scribe for Paradise Duarte DO. Paradise Duarte DO: This documentation has been prepared by the Tone nova Mackenzie, SCRIBE, under my direction and personally reviewed by me in its entirety. I confirm that the documentation accurately reflects all work , treatment, procedures, and medical decision making performed by me. History of Present Illness - General Chief Complaint: Chest Pain Stated Complaint: CHEST PAIN Time Seen by Provider: 01/28/19 09:53 History Source: Patient Exam Limitations: No Limitations - History of Present Illness Initial Comments: The patient is a 63 year old male, with a significant PMH of HTN, DM, tobacco use, and psoriasis, who presents to the emergency department with chest pain starting at approximately 7:30AM today. Patient states the pain came on while lying down, initially a 9/10 in severity but now a 5/10. Patient reports the chest pain is an intermittent diffuse burning pressure all over his chest which radiates to his left arm. Patient notes changes in sensation in left upper extremity and states he feels weak and tired. Patient also notes eating a very salty salami last night. The patient denies palpitations, shortness of breath, headache and dizziness. Denies fever, chills, nausea, vomiting, diarrhea and constipation. Denies dysuria, frequency, urgency and hematuria. Allergies: NKDA Past surgical history: Appendectomy, Cholecystectomy Social history: Smokes half a pack per day for the past 50 years PCP: Dr. Miner 01/28/19 10:50 Past History - Past Medical History Allergies/Adverse Reactions: Allergies Allergy/AdvReac Type Severity Reaction Status Date / Time No Known Allergies Allergy Verified 01/28/19 09:44 Home Medications: Ambulatory Orders Apremilast [Otezla] 30 mg PO ASDIR 01/12/19 Tamsulosin HCl [Flomax] 0.4 mg PO DAILY 01/12/19 Anemia: No Asthma: No Cancer: No Cardiac Disorders: No CVA: No COPD: No CHF: No DVT: No Dementia: No Diabetes: Yes (NIDDM) GI Disorders: No Disorders: No HTN: Yes Hypercholesterolemia: Yes Liver Disease: No Seizures: No Thyroid Disease: No - Surgical History Abdominal Surgery: Yes (HERNIA) Appendectomy: Yes Cardiac Surgery: No Cholecystectomy: Yes Lung Surgery: No Neurologic Surgery: No Orthopedic Surgery: No - Suicide/Smoking/Psychosocial Hx Smoking Status: Yes Smoking History: Current every day smoker Have you smoked in the past 12 months: Yes Number of Cigarettes Smoked Daily: 10 If you are a former smoker, when did you quit?: 2 weeks ago Information on smoking cessation initiated: No 'Breaking Loose' booklet given: 02/02/15 Hx Alcohol Use: No Drug/Substance Use Hx: No Substance Use Type: None Hx Substance Use Treatment: No Review of Systems - Review of Systems Comments:: GENERAL/CONSTITUTIONAL: (+)Weakness. No fever or chills. HEAD, EYES, EARS, NOSE AND THROAT: No change in vision. No ear pain or discharge. No sore throat. GASTROINTESTINAL: No nausea, vomiting, diarrhea or constipation. GENITOURINARY: No dysuria, frequency, or change in urination. CARDIOVASCULAR:(+)Chest pain. No shortness of breath. RESPIRATORY: No cough, wheezing, or hemoptysis. MUSCULOSKELETAL: (+)Left upper extremity pain. No neck or back pain. SKIN: No rash NEUROLOGIC: (+)Left upper extremity changes in sensation. No headache, vertigo, or loss of consciousness. ENDOCRINE: No increased thirst. No abnormal weight change. HEMATOLOGIC/LYMPHATIC: No anemia, easy bleeding, or history of blood clots. ALLERGIC/IMMUNOLOGIC: No hives or skin allergy. 01/28/19 10:53 Is the patient limited Arabic proficient: No All Other Systems: Reviewed and Negative *Physical Exam - Vital Signs Last Vital Signs Temp Pulse Resp BP Pulse Ox 98.4 F 72 18 147/76 95 01/28/19 09:42 01/28/19 09:42 01/28/19 09:42 01/28/19 09:42 01/28/19 09:42 - Physical Exam Comments: Constitutional: Awake, alert, oriented. No acute distress. Head: Normocephalic. Atraumatic Eyes: PERRL. EOMI. Conjunctivae are not pale. ENT: Mucous membranes are moist and intact. Posterior pharynx without exudates or erythema. Uvula midline. Neck: Supple. Full ROM. No lymphadenopathy. Cardiovascular: Regular rate. Regular rhythm. S1, S2 regular. Distal pulses are 2+ and symmetric. Pulmonary/Chest: No evidence of respiratory distress. Clear to auscultation bilaterally No wheezing, rales or rhonchi. Abdominal: (+) Obese belly. Soft and non-distended. There is no tenderness. No rebound, guarding or rigidity. No organomegaly. No palpable masses. Good bowel sounds. Back: No CVA tenderness. Musculoskeletal: No edema. No cyanosis. No clubbing. Full range of motion in all extremities. Nocalf tenderness. Radial/pedal pulses are intact and 2+ bilaterally Skin: Skin is warm and dry. No petechiae. No purpura. Neurological: Alert and oriented to person, place, and time. Cranial nerves II -XII are grossly intact. Normal speech. Strength is grossly symmetric. No sensory deficits. Psychiatric: Good eye contact. Normal interaction, affect and behavior. 01/28/19 10:53 Heart Score/ECG Review - ECG Intrepretation Comment:: 01/28/19 11:54 sinus at 67, nl axis, nl interval, no acute st/t wave findings ED Treatment Course - LABORATORY CBC & Chemistry Diagram: 01/28/19 10:24 01/28/19 10:24 - ADDITIONAL ORDERS Additional order review: 01/28/19 10:24 RBC 4.99 MCV 85.1 MCHC 33.4 RDW 14.2 MPV 8.7 Neutrophils % 71.1 Lymphocytes % 18.5 D Monocytes % 6.1 Eosinophils % 3.6 D Basophils % 0.7 - RADIOLOGY Radiology Studies Ordered: Category Date Time Status CHEST PA & LAT [RAD] Stat Radiology 01/28/19 10:22 Completed - Medications Given in the ED: ED Medications Discontinued Medications Generic Name Dose Route Start Last Admin Trade Name Freq PRN Reason Stop Dose Admin Al Hydroxide/Mg Hydroxide 30 ml 01/28/19 10:32 01/28/19 10:46 Mylanta Oral Suspension - PO 01/28/19 10:33 30 ml ONCE ONE Administration Aspirin 324 mg 01/28/19 10:32 01/28/19 10:46 Asa - PO 01/28/19 10:33 324 mg ONCE ONE Administration Famotidine/Sodium Chloride 20 mg in 50 mls @ 100 mls/hr 01/28/19 10:32 10:59 Pepcid 20 Mg Premixed Ivpb - IVPB 01/28/19 11:01 100 mls/hr ONCE ONE Administration Medical Decision Making - Medical Decision Making 01/28/19 11:54 a/p: 63yo male with hx of DM and HTN with cp today since 730a -no abd pain, no sob -radiates across the chest -no nausea or diaphoresis -concern for ACS - no prior episodes -will send trop, ekg, cxr -will give asa 01/28/19 12:03 cxr clear 01/28/19 12:24 trop negative cxr clear elevated glucose to 400 - nss ordered 01/28/19 12:27 pt currently resting, pain free willing to stay for further eval microblog sent to [facility] for obs placement for further eval of the cp this am 01/28/19 12:[address] Zambrano who accepts pt to service *DC/Admit/Observation/Transfer Diagnosis at time of Disposition: Chest pain - Discharge Dispostion Condition at time of disposition: Fair Decision to Admit order: Yes - Referrals Referrals: Shana Miner MD [Primary Care Provider] - - Patient Instructions - Post Discharge Activity - Attestations Physician Attestion: 01/28/19 12:29 I, Dr. Paradise Duarte, DO, attest that this document has been prepared under my direction and personally reviewed by me in its entirety. I further attest, that it accurately reflects all work, treatment, procedures and medical decision -making performed by me.
[2019-01-28 12:16] LABS: ALBUMIN 3.8 g/dl (3.4-5.0); ALK PHOS 59 U/L (45-117); ANION GAP 4 MMOL/L (8-16); BILIRUBIN,TOTAL 0.3 mg/dL (0.2-1); BLOOD UREA NITROGEN 15.5 mg/dL (7-18); CALCIUM 9.1 mg/dL (8.5-10.1); CHLORIDE 103 mmol/L (98-107); CO2 29 mmol/L (21-32); MAGNESIUM 2.4 mg/dL (1.8-2.4); N-TERMINAL BNP 91.5 pg/ml (5-125); POTASSIUM 4.1 mmol/L (3.5-5.1); SGOT/AST 10 U/L (15-37); SGPT/ALT 34 U/L (13-61); SODIUM 137 mmol/L (136-145); TOT PROT 7.3 g/dl (6.4-8.2)
[2019-01-28 12:17] LABS: GLUCOSE,RANDOM 402 mg/dL (74-106)
[2019-01-28] MEDS ORDERED: SODIUM CHLORIDE 0.9% 1000 ML INFUS.BAG IV ONE (12:24)
--- NOTE | 2019-01-28 14:02 | HP ---
CHIEF COMPLAINT: chest pain PCP: Dr. Miner HISTORY OF PRESENT ILLNESS: 63 yom with PMHx of HTN, HLD, NIDDM, Psoriasis, started on Methotrexate 1 week ago, active smoker, obesity, woke up this AM, around 7:30 AM had sudden of chest pain, generalized, overall chest wall area, radiating down left arm, associated with dyspnea and left hand numbness. Symptoms lasted about 15 min, resolved, but recurred,so came to ED, finally resolved over an hour after receiving ASA, Maalox, famotidine in the ED. Currently chest pain free. Denies any nausea, vomiting, diaphoresis, radiation to back, similar prior symptoms, fevers, chills, new cough. Can walk upto 1 mile without any symptoms of chest pressure or dyspnea. Also unrelated left shoulder pain with movements which states is likely from sleeping on the side. Reports having lots of cherries and sweets yesterday. Does not check Blood sugars at home. Does not take ASA or lipitor though has been advised. Recent Travel: denies PAST MEDICAL HISTORY: HTN, HLD, NIDDM, Psoriasis, started on Methotrexate 1 week ago PAST SURGICAL HISTORY: Cholecystectomy, Appendectomy Social History: Smoking: Prior heavy smoker 2 PPD since age 14 , now 1/2 PPD Alcohol: Denies Drugs: Denies Was building construction ironworker, retired Family History: Allergies No Known Allergies Allergy (Verified 01/28/19 09:44) HOME MEDICATIONS: Home Medications Medication Instructions Recorded Tamsulosin HCl [Flomax] 0.4 mg PO DAILY 01/12/19 Amlodipine Besylate/Benazepril 1 each PO DAILY 01/28/19 [Amlodipine-Benazepril 10-20 mg] Atorvastatin Ca [Lipitor] 10 mg PO HS 01/28/19 Folic Acid 1 mg PO DAILY 01/28/19 Methotrexate [Mexate -] 10 mg PO Q7D 01/28/19 Sitagliptin Phosphate [Januvia] 100 mg PO DAILY 01/28/19 metFORMIN HCL [Metformin HCl ER] 750 mg PO DAILY 01/28/19 Intake & Output 01/25/19 01/26/19 01/27/19 01/28/19 23:59 23:59 23:59 23:59 Weight 188 lb REVIEW OF SYSTEMS 12 point ROS done, per HPI PHYSICAL EXAMINATION Vital Signs - 24 hr 01/28/19 01/28/19 09:42 13:37 Temperature 98.4 F Pulse Rate 72 Pulse Rate [ 67 Right Radial] Respiratory 18 18 Rate Blood Pressure 147/76 Blood Pressure 133/82 [Left Arm] O2 Sat by Pulse 95 98 Oximetry (%) Intake & Output 01/25/19 01/26/19 01/27/19 01/28/19 23:59 23:59 23:59 23:59 Weight 188 lb GENERAL: Awake, alert, and fully oriented, in no acute distress. HEAD: Normal with no signs of trauma. EYES: Pupils equal, round and reactive to light, extraocular movements intact, sclera anicteric, conjunctiva clear. No lid lag. EARS, NOSE, THROAT: Ears normal, nares patent, oropharynx clear without exudates. Moist mucous membranes. NECK: Normal range of motion, soft, supple, thick neck limiting further exam LUNGS: Breath sounds equal, clear to auscultation bilaterally. No wheezes, and no crackles. No accessory muscle use. HEART: Regular rate and rhythm, normal S1 and S2 ABDOMEN: Soft, nontender, not distended, normoactive bowel sounds, no guarding, no rebound, no masses. MUSCULOSKELETAL: Normal range of motion at all joints. No bony deformities or tenderness. No CVA tenderness. UPPER EXTREMITIES: 2+ pulses, warm, well-perfused. No cyanosis. No clubbing. No peripheral edema. Full ROM Left shoulder, no point tenderness or erythema LOWER EXTREMITIES: 2+ pulses, warm, well-perfused. No calf tenderness. No peripheral edema. NEUROLOGICAL: AAOx3, power 5/5 sensation intact to light touch, Cranial nerves II-XII intact. Normal speech. Normal gait. PSYCHIATRIC: Cooperative. Good eye contact. Appropriate mood and affect. SKIN: Warm, dry, normal turgor, no rashes or lesions noted, normal capillary refill. Laboratory Results - last 24 hr 01/28/19 01/28/19 01/28/19 10:24 10:24 10:24 WBC 9.0 RBC 4.99 Hgb 14.2 Hct 42.4 MCV 85.1 MCH 28.5 MCHC 33.4 RDW 14.2 Plt Count 223 MPV 8.7 Absolute Neuts (auto) 6.4 Neutrophils % 71.1 Lymphocytes % 18.5 D Monocytes % 6.1 Eosinophils % 3.6 D Basophils % 0.7 Nucleated RBC % 0 PT with INR 10.40 INR 0.88 PTT (Actin FS) 32.0 Sodium 137 Potassium 4.1 Chloride 103 Carbon Dioxide 29 Anion Gap 4 L BUN 15.5 Creatinine 1.0 Est GFR (CKD-EPI)AfAm 91.13 Est GFR (CKD-EPI)NonAf 78.63 POC Glucometer Random Glucose 402 H* Calcium 9.1 Magnesium 2.4 Total Bilirubin 0.3 AST 10 L ALT 34 Alkaline Phosphatase 59 Creatine Kinase 36 Troponin I < 0.02 B-Natriuretic Peptide 91.5 Total Protein 7.3 Albumin 3.8 01/28/19 13:35 WBC RBC Hgb Hct MCV MCH MCHC RDW Plt Count MPV Absolute Neuts (auto) Neutrophils % Lymphocytes % Monocytes % Eosinophils % Basophils % Nucleated RBC % PT with INR INR PTT (Actin FS) Sodium Potassium Chloride Carbon Dioxide Anion Gap BUN Creatinine Est GFR (CKD-EPI)AfAm Est GFR (CKD-EPI)NonAf POC Glucometer 238 Random Glucose Calcium Magnesium Total Bilirubin AST ALT Alkaline Phosphatase Creatine Kinase Troponin I B-Natriuretic Peptide Total Protein Albumin EKG - NSR, no acute ST-T changes CXR results and images reviewed ASSESSMENT/PLAN: 63 yom with PMHx of HTN, HLD, NIDDM, Psoriasis, started on Methotrexate 1 week ago, active smoker, obesity admitted with chest pain -Chest pain with some typical features -HTN -HLD -NIDDM -Psoriasis -Obesity -Suspect ALLISON Plan: Telemetry, r/o ACS Given risk factors and some typical features, 2D echo, and stress test once ACS ruled out. ASA 81 mg daily. Non compliant with lipitor. Start 40 mg hs, check lipid panel. Continue amlodipine/ACEI. Will benefit from beta araseli, will hold off pending stress test Hold januvia/Metformin. ISS Recently started on methotrexate, takes every Tuesday patient advised outpatient sleep study Smoking cessation counseling provided. DVTPPX lovenox Dispo admit to tele observation Plan discussed with patient in detail, all questions answered Total admit time 65 min. Visit type - Emergency Visit Emergency Visit: Yes ED Registration Date: 01/28/19 Care time: The patient presented to the Emergency Department on the above date and was hospitalized for further evaluation of their emergent condition. - New Patient This patient is new to me today: Yes Date on this admission: 01/28/19 - Critical Care Critical Care patient: No
[2019-01-28 14:23] VITALS: BMI 36.1
[2019-01-28] MEDS ORDERED: PNEUMOC 13-VAL CONJ-DIP CRM/PF 0.5 ML DISP.SYRIN IM ONE (14:23)
[2019-01-28] MEDS: INSULIN SLIDING SCALE (NOVOLOG) 1 VIAL SQ SCH ×2 (17:10→21:36)
[2019-01-28] MEDS ORDERED: ATORVASTATIN CA 40 MG TABLET (FP) PO SCH (22:00)
[2019-01-28] MEDS ORDERED: TAMSULOSIN HCL 0.4 MG CAP PO SCH (22:00)
[2019-01-29] MEDS: INSULIN SLIDING SCALE (NOVOLOG) 1 VIAL SQ SCH (06:34)
[2019-01-29 07:32] VITALS: TEMP 98.1
[2019-01-29 07:32] LABS: BASO % 0.8 % (0-2.0); EOS % 3.4 % (0-4.5); HEMATOCRIT 42.3 % (35.4-49); HEMOGLOBIN 14.2 GM/dL (11.7-16.9); LYMPH % 21.4 % (8-40); MCH 28.3 pg (25.7-33.7); MCHC 33.6 g/dl (32.0-35.9); MEAN CELL VOLUME 84.4 fl (80-96); MEAN PLT VOLUME 8.4 fl (7.5-11.1); MONO % 4.8 % (3.8-10.2); NEUT % 69.6 % (42.8-82.8); PLATELET COUNT 228 K/MM3 (134-434); RBC 5.02 M/mm3 (4.00-5.60); WHITE BLOOD COUNT 9.1 K/mm3 (4.0-10.0)
[2019-01-29] MEDS ORDERED: MORPHINE SULFATE 2 MG/ML VIAL ONE (07:37)
[2019-01-29] MEDS ORDERED: ASPIRIN 81 MG CHEWABLE TABLETS PO STA (07:38)
[2019-01-29] MEDS ORDERED: ASPIRIN 325 MG TABLET ONE (07:43)
[2019-01-29] MEDS ORDERED: CLOPIDOGREL BISULFATE 300 MG TABLET PO ONE ×2 (07:43→08:11)
--- NOTE | 2019-01-29 07:44 | RAPID ---
Physical Examination Vital Signs: Vital Signs Temperature 98.1 F 01/29/19 06:30 Pulse Rate 61 01/29/19 06:30 Respiratory Rate 18 01/29/19 06:30 Blood Pressure 137/75 01/29/19 06:30 O2 Sat by Pulse Oximetry (%) 97 01/29/19 06:00 Rapid Response - Rapid Response Assessment: Subjective: Rapid rsponse called overhead at 0728. house calls nurse practitioner team responded immediately. Alerted by nursing staff that patient found to be bradycardic & hypotensive. Pt c/o sudden onset left sided chest pain, described as a burning pressure. Additionally c/o sweating. Denies SOB. Objective: Initial VS; HR 41 78/44 SpO2 93% General: AOx3. Moderate acute distress. Diaphoretic Cardio: Bradycardic. S1S2 heard. Lungs: CTABL. Extr: No edema A/P: #Chest pain -Concern for STEMI/ NSTEMI--Must r/o ACS -EKG reveals ST seg elevation in leads II, V1-V3 -Stat trop drawn -ASA 325mg PO, Clopidogrel 600mg given x 1 -Heparin drip started -1L NS bolus given wide open -Dr. Flowers made aware--recs transfer for cardiac cath -Call placed to [facility] by Dr. Zambrano Primary team; case d/w cardiac PA Repeat VS: HR 39 70/50 SpO2 96% Repeat VS: HR 43 71/39 Repeat VS: HR 48 88/38
[2019-01-29] MEDS ORDERED: HEPARIN INFUSION - 500 ML IV SCH (07:45)
[2019-01-29] MEDS ORDERED: HEPARIN NA (PORCINE) 5,000 UNITS/ML 1ML VIAL IVPUSH PRN ×4 (07:45→07:59)
[2019-01-29 07:50] LABS: BLOOD UREA NITROGEN 13.3 mg/dL (7-18); CREATININE 0.9 mg/dL (0.55-1.3); MAGNESIUM 2.4 mg/dL (1.8-2.4); PHOSPHOROUS 3.6 mg/dL (2.5-4.9); POTASSIUM 4.4 mmol/L (3.5-5.1)
[2019-01-29] MEDS ORDERED: ASPIRIN 325 MG TABLET PO ONE (07:56)
[2019-01-29] MEDS ORDERED: HEPARIN - 25,000 UNIT in SODIUM CHLORIDE 495 ML IV SCH (08:00)
[2019-01-29] MEDS ORDERED: MORPHINE SULFATE 2 MG/ML VIAL IVPUSH ONE (08:19)
--- NOTE | 2019-01-29 08:22 | DS ---
Physical Exam: SUBJECTIVE: Patient seen and examined. In acute distress. Chest pain now 01/31. Noted to be hypotensive, bradycardic, with STEMI in II, III, AVF OBJECTIVE: Vital Signs Period Temp Pulse Resp BP Sys/Cole Pulse Ox Last 24 Hr 97.8 F-98.8 F 58-72 18-18 133-147/75-85 95-98 Vital Signs Temperature 98.1 F 01/29/19 06:30 Pulse Rate 61 01/29/19 06:30 Respiratory Rate 18 01/29/19 06:30 Blood Pressure 137/75 01/29/19 06:30 O2 Sat by Pulse Oximetry (%) 97 01/29/19 06:00 PHYSICAL EXAM GENERAL: The patient is awake, alert, and fully oriented, diaphoretic, in acute painful distressdistress. LUNGS: Reduced Breath sounds b/l, HEART: S1, S2 , bradycardic ABDOMEN: Obese EXTREMITIES: 2+ pulses, warm, well-perfused, no edema. NEUROLOGICAL: Cranial nerves II through XII grossly intact. Normal speech, gait not observed. SKIN: Diaphoretic CBC, BMP 01/29/19 05:50 01/29/19 05:50 LABS Laboratory Results - last 24 hr 01/28/19 01/28/19 01/28/19 10:24 10:24 10:24 WBC 9.0 RBC 4.99 Hgb 14.2 Hct 42.4 MCV 85.1 MCH 28.5 MCHC 33.4 RDW 14.2 Plt Count 223 MPV 8.7 Absolute Neuts (auto) 6.4 Neutrophils % 71.1 Lymphocytes % 18.5 D Monocytes % 6.1 Eosinophils % 3.6 D Basophils % 0.7 Nucleated RBC % 0 PT with INR 10.40 INR 0.88 PTT (Actin FS) 32.0 Sodium 137 Potassium 4.1 Chloride 103 Carbon Dioxide 29 Anion Gap 4 L BUN 15.5 Creatinine 1.0 Est GFR (CKD-EPI)AfAm 91.13 Est GFR (CKD-EPI)NonAf 78.63 POC Glucometer Random Glucose 402 H* Hemoglobin A1c % Calcium 9.1 Phosphorus Magnesium 2.4 Total Bilirubin 0.3 AST 10 L ALT 34 Alkaline Phosphatase 59 Creatine Kinase 36 Troponin I < 0.02 B-Natriuretic Peptide 91.5 Total Protein 7.3 Albumin 3.8 Triglycerides Cholesterol Total LDL Cholesterol HDL Cholesterol TSH 01/28/19 01/28/19 01/28/19 13:35 16:49 17:04 WBC RBC Hgb Hct MCV MCH MCHC RDW Plt Count MPV Absolute Neuts (auto) Neutrophils % Lymphocytes % Monocytes % Eosinophils % Basophils % Nucleated RBC % PT with INR INR PTT (Actin FS) Sodium Potassium Chloride Carbon Dioxide Anion Gap BUN Creatinine Est GFR (CKD-EPI)AfAm Est GFR (CKD-EPI)NonAf POC Glucometer 238 233 Random Glucose Hemoglobin A1c % Calcium Phosphorus Magnesium Total Bilirubin AST ALT Alkaline Phosphatase Creatine Kinase Troponin I 0.03 B-Natriuretic Peptide Total Protein Albumin Triglycerides Cholesterol Total LDL Cholesterol HDL Cholesterol TSH 01/28/19 01/28/19 01/29/19 21:34 23:40 05:50 WBC 9.1 RBC 5.02 Hgb 14.2 Hct 42.3 MCV 84.4 MCH 28.3 MCHC 33.6 RDW 14.0 Plt Count 228 MPV 8.4 Absolute Neuts (auto) 6.3 Neutrophils % 69.6 Lymphocytes % 21.4 Monocytes % 4.8 Eosinophils % 3.4 Basophils % 0.8 Nucleated RBC % 0 PT with INR INR PTT (Actin FS) Sodium Potassium Chloride Carbon Dioxide Anion Gap BUN Creatinine Est GFR (CKD-EPI)AfAm Est GFR (CKD-EPI)NonAf POC Glucometer 228 Random Glucose Hemoglobin A1c % Calcium Phosphorus Magnesium Total Bilirubin AST ALT Alkaline Phosphatase Creatine Kinase Troponin I 0.03 B-Natriuretic Peptide Total Protein Albumin Triglycerides Cholesterol Total LDL Cholesterol HDL Cholesterol TSH 01/29/19 01/29/19 01/29/19 05:50 05:50 05:50 WBC RBC Hgb Hct MCV MCH MCHC RDW Plt Count MPV Absolute Neuts (auto) Neutrophils % Lymphocytes % Monocytes % Eosinophils % Basophils % Nucleated RBC % PT with INR INR PTT (Actin FS) Sodium 139 Potassium 4.4 Chloride 103 Carbon Dioxide 31 Anion Gap 4 L BUN 13.3 Creatinine 0.9 Est GFR (CKD-EPI)AfAm 103.51 Est GFR (CKD-EPI)NonAf 89.31 POC Glucometer Random Glucose 169 H Hemoglobin A1c % 8.3 H Calcium 9.0 Phosphorus 3.6 Magnesium 2.4 Total Bilirubin AST ALT Alkaline Phosphatase Creatine Kinase 34 Troponin I 0.03 B-Natriuretic Peptide Total Protein Albumin Triglycerides 161 H Cholesterol 201 H Total LDL Cholesterol 135 H HDL Cholesterol 44 TSH 3.25 01/29/19 01/29/19 01/29/19 06:33 07:28 08:15 WBC RBC Hgb Hct MCV MCH MCHC RDW Plt Count MPV Absolute Neuts (auto) Neutrophils % Lymphocytes % Monocytes % Eosinophils % Basophils % Nucleated RBC % PT with INR INR PTT (Actin FS) Sodium Potassium Chloride Carbon Dioxide Anion Gap BUN Creatinine Est GFR (CKD-EPI)AfAm Est GFR (CKD-EPI)NonAf POC Glucometer 168 156 275 Random Glucose Hemoglobin A1c % Calcium Phosphorus Magnesium Total Bilirubin AST ALT Alkaline Phosphatase Creatine Kinase Troponin I B-Natriuretic Peptide Total Protein Albumin Triglycerides Cholesterol Total LDL Cholesterol HDL Cholesterol TSH Ambulatory Orders Tamsulosin HCl [Flomax] 0.4 mg PO DAILY 01/12/19 Amlodipine Besylate/Benazepril [Amlodipine-Benazepril 10-20 mg] 1 each PO DAILY 01/28/19 Atorvastatin Ca [Lipitor] 10 mg PO HS 01/28/19 Folic Acid 1 mg PO DAILY 01/28/19 Methotrexate [Mexate -] 10 mg PO Q7D 01/28/19 Sitagliptin Phosphate [Januvia] 100 mg PO DAILY 01/28/19 metFORMIN HCL [Metformin HCl ER] 750 mg PO DAILY 01/28/19 Current Medications Amlodipine Besylate (Norvasc -) 10 mg PO DAILY [facility] Aspirin (Ecotrin -) 81 mg PO DAILY [facility] Aspirin (Asa -) 325 mg PO ONCE ONE Stop: 01/29/19 07:57 Last Admin: 01/29/19 07:57 Dose: 325 mg Atorvastatin Calcium (Lipitor -) 40 mg PO HS [facility] Last Admin: 01/28/19 21:35 Dose: 40 mg Clopidogrel Bisulfate (Plavix -) 300 mg PO ONCE ONE Stop: 01/29/19 08:12 Last Admin: 01/29/19 08:13 Dose: 300 mg Folic Acid (Folic Acid -) 1 mg PO DAILY [facility] Heparin Sodium (Porcine) (Heparin -) 1,000 unit IVPUSH PRN PRN PRN Reason: Heparin Heparin Sodium (Porcine) (Heparin -) 5,000 unit IVPUSH PRN PRN PRN Reason: Heparin Heparin Sodium (Porcine) (Heparin -) 1,000 unit IVPUSH PRN PRN PRN Reason: Heparin Heparin Sodium (Porcine) (Heparin -) 5,000 unit IVPUSH PRN PRN PRN Reason: Heparin Last Admin: 01/29/19 08:02 Dose: 5,000 unit Heparin Sodium/Dextrose (Heparin Infusion -) 500 mls @ 20 mls/hr IV TITR [facility]; Protocol Heparin Sodium (Porcine) 25, (000 unit/ Sodium Chloride) 500 mls @ 20 mls/hr IV TITR [facility]USIE; Protocol Last Admin: 01/29/19 08:03 Dose: 1,000 unit/hr, 20 mls/hr Insulin Aspart (Novolog Vial Sliding Scale -) 0 vial SQ ACHS [facility]IE; Protocol Last Admin: 01/29/19 06:34 Dose: Not Given Lisinopril (Prinivil) 20 mg PO DAILY [facility] Morphine Sulfate (Morphine Injection -) 1 mg IVPUSH ONCE ONE Stop: 01/29/19 08:20 Tamsulosin HCl (Flomax -) 0.4 mg PO HS [facility] Last Admin: 01/28/19 21:35 Dose: 0.4 mg HOSPITAL COURSE: Date of Admission:01/28/19 Date of Discharge: 01/29/19 63 yom with PMHx of HTN, HLD, NIDDM, Psoriasis, started on Methotrexate 1 week ago, active smoker, obesity, woke up this AM, around 7:30 AM had sudden of chest pain, generalized, overall chest wall area, radiating down left arm, associated with dyspnea and left hand numbness. Chest pain resolved after arrival in ED. This am, after using the bathroom, pt developed new chest pain that persisted until her was transferred to [facility] for Cath. Pt was bradycardic and hypotensive and received IVF, ASA 324, PlaVIX 600MG and 1mg morphine. [employer] physician interventional cardiologist was consulted. Minutes to complete discharge: 45 Discharge Summary Reason For Visit: CHEST PAIN Current Active Problems Chest pain (Acute) Condition: Critical - Instructions Diet, Activity, Other Instructions: Transferred to [facility] for cath due to inferior posterior STEMI Pt received ASA 324 Plavix 6000mg Heparin drip started Was [placed on oxygen Home meds: Tamsulosin HCl [Flomax] 0.4 mg PO DAILY 01/12/19 Amlodipine Besylate/Benazepril [Amlodipine-Benazepril 10-20 mg] 1 each PO DAILY 01/28/19 Atorvastatin Ca [Lipitor] 10 mg PO HS 01/28/19 Folic Acid 1 mg PO DAILY 01/28/19 Methotrexate [Mexate -] 10 mg PO Q7D 01/28/19 Sitagliptin Phosphate [Januvia] 100 mg PO DAILY 01/28/19 metFORMIN HCL [Metformin HCl ER] 750 mg PO DAILY 01/28/19 Current Medications Amlodipine Besylate (Norvasc -) 10 mg PO DAILY [facility] Aspirin (Ecotrin -) 81 mg PO DAILY [facility] Aspirin (Asa -) 325 mg PO ONCE ONE Stop: 01/29/19 07:57 Last Admin: 01/29/19 07:57 Dose: 325 mg Atorvastatin Calcium (Lipitor -) 40 mg PO HS [facility] Last Admin: 01/28/19 21:35 Dose: 40 mg Clopidogrel Bisulfate (Plavix -) 300 mg PO ONCE ONE Stop: 01/29/19 08:12 Last Admin: 01/29/19 08:13 Dose: 300 mg Folic Acid (Folic Acid -) 1 mg PO DAILY [facility] Heparin Sodium (Porcine) (Heparin -) 1,000 unit IVPUSH PRN PRN PRN Reason: Heparin Heparin Sodium (Porcine) (Heparin -) 5,000 unit IVPUSH PRN PRN PRN Reason: Heparin Heparin Sodium (Porcine) (Heparin -) 1,000 unit IVPUSH PRN PRN PRN Reason: Heparin Heparin Sodium (Porcine) (Heparin -) 5,000 unit IVPUSH PRN PRN PRN Reason: Heparin Last Admin: 01/29/19 08:02 Dose: 5,000 unit Heparin Sodium/Dextrose (Heparin Infusion -) 500 mls @ 20 mls/hr IV TITR SUSIE; Protocol Heparin Sodium (Porcine) 25, (000 unit/ Sodium Chloride) 500 mls @ 20 mls/hr IV TITR SUSIE; Protocol Last Admin: 01/29/19 08:03 Dose: 1,000 unit/hr, 20 mls/hr Insulin Aspart (Novolog Vial Sliding Scale -) 0 vial SQ ACHS [facility]IE; Protocol Last Admin: 01/29/19 06:34 Dose: Not Given Lisinopril (Prinivil) 20 mg PO DAILY [facility] Morphine Sulfate (Morphine Injection -) 1 mg IVPUSH ONCE ONE Stop: 01/29/19 08:20 Tamsulosin HCl (Flomax -) 0.4 mg PO HS [facility] Last Admin: 01/28/19 21:35 Dose: 0.4 mg Disposition: TRANSFER ACUTE CARE/OTHER HOSP - Home Medications Comprehensive Discharge Medication List: Ambulatory Orders Tamsulosin HCl [Flomax] 0.4 mg PO DAILY 01/12/19 Amlodipine Besylate/Benazepril [Amlodipine-Benazepril 10-20 mg] 1 each PO DAILY 01/28/19 Atorvastatin Ca [Lipitor] 10 mg PO HS 01/28/19 Folic Acid 1 mg PO DAILY 01/28/19 Methotrexate [Mexate -] 10 mg PO Q7D 01/28/19 Sitagliptin Phosphate [Januvia] 100 mg PO DAILY 01/28/19 metFORMIN HCL [Metformin HCl ER] 750 mg PO DAILY 01/28/19 This patient is new to me today: Yes Date on this admission: 01/29/19 Emergency Visit: Yes ED Registration Date: 01/28/19 Care time: The patient presented to the Emergency Department on the above date and was hospitalized for further evaluation of their emergent condition. Critical Care patient: Yes Total Critical Care Time (in minutes): 40 Critical Care Statement: The care of this patient involved high complexity decision making to prevent further life threatening deterioration of the patient 's condition and/or to evaluate & treat vital organ system(s) failure or risk of failure. - Discharge Referral Referred to [facility] No ATTENDING PHYSICIAN STATEMENT I saw and evaluated the patient. I reviewed the resident's note and discussed the case with the resident. I agree with the resident's findings and plan as documented. SUBJECTIVE: OBJECTIVE: ASSESSMENT AND PLAN:
[2019-01-29] MEDS ORDERED: REGADENOSON 0.4 MG/5 ML PRE-FILLED SYRINGE IVPUSH ONE (08:30)
[2019-01-29 09:10] VITALS: BP 78/44; PULSE 42
--- NOTE | 2019-01-29 09:13 | PN ---
Progress Note (short form) - Note Progress Note: Rapid response called 7:25 AM. patient with chest pain, EKG with inferior STEMI. HR 40s, SBP 80s. Cardiology client application support engineer Dr. Flowers contact STAT. ASA 325 mg and plavix 600 mg loading started on heparin drip. IVF wide open. Right sided EKG confirmed inferoposterior STEMI. [facility] transfer center contacted, case discussed with Isaac cardiac cath PA, patient for STAT transfer to [facility] cardiac laboratory phlebotomist. BP improved to 100/60 prior to transfer, Ongoing chest pain, small dose IV morphine administered. patient transferred via ambulance. Total critical care time spent at bedside 55 min. Visit type - Emergency Visit Emergency Visit: Yes ED Registration Date: 01/28/19 Care time: The patient presented to the Emergency Department on the above date and was hospitalized for further evaluation of their emergent condition. - New Patient This patient is new to me today: No - Critical Care Critical Care patient: Yes Total Critical Care Time (in minutes): 55 Critical Care Statement: The care of this patient involved high complexity decision making to prevent further life threatening deterioration of the patient 's condition and/or to evaluate & treat vital organ system(s) failure or risk of failure. - Discharge Referral Referred to [facility] No
[2019-01-29] MEDS ORDERED: ASPIRIN COATED 81 MG TABLET.EC PO SCH (10:00)
[2019-01-29] MEDS ORDERED: LISINOPRIL 10 MG TABLET (FP) PO SCH (10:00)
[2019-01-29] MEDS ORDERED: FOLIC ACID 1 MG TABLET (FP) PO SCH (10:00)
[2019-01-29] MEDS ORDERED: ENOXAPARIN NA (PORCINE) 40 MG/0.4 ML DISP.SYRIN SQ SCH (10:00)
[2019-01-29] MEDS ORDERED: amLODIPine BESYLATE 10 MG TABLET (FP) PO SCH (10:00)
--- NOTE | 2019-01-29 10:32 | CON.CARD ---
Consult Consult Specialty:: Cardiology Referred by:: Dr. Zambrano Reason for Consultation:: Acute Inferior STEMI - History of Present Illness Chief Complaint: chest pain History of Present Illness: 63 year old male with PMHx of HTN, HLD, NIDDM, Psoriasis, started on Methotrexate 1 week ago, active smoker, obesity, woke up 01/28 with chest pain- had sudden of chest pain, generalized, overall chest wall area, radiating down left arm, associated with dyspnea and left hand numbness. Symptoms lasted about 15 min, resolved, but recurred,so came to ED, finally resolved over an hour after receiving ASA, Maalox, famotidine in the ED. Currently chest pain free. Denies any nausea, vomiting, diaphoresis, radiation to back, similar prior symptoms, fevers, chills, new cough. Usually walks 1 mile without any symptoms of chest pressure or dyspnea. Also unrelated left shoulder pain with movements which states is likely from sleeping on the side. This AM (01/29) shortly after 7AM developed severe substernal chest pain. Repeat ECG revealed Sinus aleshia vs junctional rhythm with inferior ST elevation and ST depression in I, avL new from the initial ECG. Hospitalist and nursing staff attended to patient: administered nasal can O2, ASA, heparin gtts and 300mg Plavix. [place] paint laboratory technician activated. Upon my arrival on floor at around 7:50 AM, was called to patient room. Active chest pain, ECGs reviewed. BP stable, IV fluids ordered to continue and right sided ECG requested. Right sided ECG performed and showed elevation in RV4, indicative of RV involvement. Instructed staff and EMS (arrived) to avoid nitroglycerin. - History Source History Provided By: Patient, Medical Record - Past Medical History Cardio/Vascular: Yes: HTN Gastrointestinal: Yes: Other (umbilical hernia) Hepatobiliary: No: Cirrhosis, Cholelithiasis, Cholecystitis, Choledocholithiasis , Hepatitis A, Hepatitis B, Hepatitis C, Other Renal/: No: Renal Failure, Renal Inusuff, BPH, Cancer, Hematuria, Hemodialysis , Neurogenic Bladder, Renal Calculi, UTI, Other Heme/Onc: No: Anemia, B12 Deficiency, Bleeding Disorder, Cancer, Current Chemotherapy, Current Radiation Therapy, Hemochromatosis, Hypercoaguable State, Myeloproliferative Synd, Sickle Cell Disease, Sickle Cell Trait, Thrombocytopenia, Other Infectious Disease: No: AIDS, C-Diff, Herpes Zoster, HIV, MRSA, STD's, Tuberculosis, VREF, Other Psych: No: Addictions, Anxiety, Bipolar, Depression, Panic, Psychosis, Schizophrenia, Other Musculoskeletal: No: Bursitis, Chronic low back pain, Hemiparesis, Hemiplegia, Osteoarthritis, Paraplegia, Other Rheumatology: No: Fibromyalgia, Gout, Lupus, Rheumatoid Arthritis, Sarcoidosis, Vasculitis, Other Endocrine: Yes: Diabetes Mellitus Dermatology: Yes: Psoriasis - Alcohol/Substance Use Hx Alcohol Use: No - Smoking History Smoking history: Current every day smoker Have you smoked in the past 12 months: Yes Aproximately how many cigarettes per day: 10 If you are a former smoker, when did you quit?: 2 weeks ago - Social History ADL: Independent Home Medications - Allergies Allergies/Adverse Reactions: Allergies Allergy/AdvReac Type Severity Reaction Status Date / Time No Known Allergies Allergy Verified 01/28/19 09:44 - Home Medications Home Medications: Ambulatory Orders Tamsulosin HCl [Flomax] 0.4 mg PO DAILY 01/12/19 Amlodipine Besylate/Benazepril [Amlodipine-Benazepril 10-20 mg] 1 each PO DAILY 01/28/19 Atorvastatin Ca [Lipitor] 10 mg PO HS 01/28/19 Folic Acid 1 mg PO DAILY 01/28/19 Methotrexate [Mexate -] 10 mg PO Q7D 01/28/19 Sitagliptin Phosphate [Januvia] 100 mg PO DAILY 01/28/19 metFORMIN HCL [Metformin HCl ER] 750 mg PO DAILY 01/28/19 Family Disease History - Family Disease History Family Disease History: CA: Brother (Unknown type) Review of Systems Findings/Remarks: see HPI - Review of Systems Constitutional: reports: No Symptoms Eyes: reports: No Symptoms HENT: reports: No Symptoms Cardiovascular: reports: Chest Pain Respiratory: denies: No Symptoms, Cough, Exercise Intolerance, Hemoptysis, Orthopnea, PND, Snoring, SOB, SOB on Exertion, Wheezing, Other Gastrointestinal: denies: No Symptoms, Abdominal Pain, Bloating, Constipation, Diarrhea, Dysphagia, Indigestion, Melena, Nausea, Rectal Bleeding, Vomiting, Vomiting Blood, Other Genitourinary: denies: No Symptoms, Burning, Discharge, Dysuria, Flank Pain, Frequency, Hematuria, Incontinence, Lesions, Menses, Pain, Testicular Mass, Testicular Pain, Testicular Swelling, Urgency, Vaginal Bleeding, Other Breasts: denies: No Symptoms Reported, See HPI, Breast Implants, Discharge from Nipple, Lumps, Pain, Skin Changes, Other Musculoskeletal: denies: No Symptoms, Back Pain, Crepitus, Decreased ROM, Extremity Pain, Joint Pain, Joint Swelling, Muscle Pain, Muscle Cramps, Muscle Weakness, Other Integumentary: denies: No Symptoms, Blister, Bruising, Change in Color, Eczema, Erythema, Incision, Lesions, Lump, Pallor, Pruritis, Rash, Wound, Other Neurological: denies: No Symptoms, Change in LOC, Change in Speech, Confusion, Dizziness, Headache, Incoordination, Numbness, Parasthesia, Pre-Existing Deficit , Seizure, Syncope, Tremors, Unsteady Gait, Weakness, Other Endocrine: denies: No Symptoms, Excessive Sweating, Flushing, Increased Hunger, Increased Thirst, Intolerance to Cold, Intolerance to Heat, Unexplained Weight Gain, Unexplained Weight Loss, Other Hematology/Lymphatic: denies: No Symptoms, Easily Bruised, Excessive Bleeding, Swollen Glands, Other Psychiatric: denies: No Symptoms, Altered Sleep Pattern, Anxiety, Depression, Hallucinations, Panic, Paranoia, Suicidal, Other - Risk Factors Known Risk Factors: Yes: Diabetes Mellitus, Hypercholesterolemia, Hypertension, Smoking Vital Signs: Vital Signs Temperature 98.1 F 01/29/19 06:30 Pulse Rate 42 L 01/29/19 07:40 Respiratory Rate 20 01/29/19 07:40 Blood Pressure 78/44 L 01/29/19 07:40 O2 Sat by Pulse Oximetry (%) 97 01/29/19 06:00 Constitutional: Yes: Anxious Eyes: Yes: Conjunctiva Clear, EOM Intact HENT: Yes: Atraumatic, Normocephalic Respiratory: Yes: CTA Bilaterally (no rales) Gastrointestinal: Yes: Soft, Abdomen, Obese Cardiovascular: Yes: Regular Rate and Rhythm JVD: No Carotid Bruit: No PMI: Non-Displaced Heart Sounds: Yes: S1, S2 (RRR, no M/R/G) Edema: No (warm) Peripheral Pulses WNL: Yes Neurological: Yes: Alert, Oriented ...Motor Strength: WNL - Other Data Labs, Other Data: CBC, BMP 01/29/19 05:50 01/29/19 05:50 INR, PTT INR 0.88 (0.83-1.09) 01/28/19 10:24 Troponin, BNP 01/28/19 01/28/19 01/28/19 10:24 16:49 23:40 Troponin I < 0.02 0.03 0.03 B-Natriuretic Peptide 91.5 01/29/19 05:50 Troponin I 0.03 B-Natriuretic Peptide Troponin, BNP 01/28/19 01/28/19 01/28/19 10:24 16:49 23:40 Troponin I < 0.02 0.03 0.03 B-Natriuretic Peptide 91.5 01/29/19 05:50 Troponin I 0.03 B-Natriuretic Peptide see HPI for evolution Original presenting ECGL NSR 67bpm. nl axis, intervals. No acute ST changes Echo: Pending Imaging - Results Chest X-ray: Report Reviewed, Image Reviewed EKG: Image Reviewed Assessment/Plan IMP: 1. Acute inferior STEMI w/ RV involvement 2. History of HTN, HLD and DM REC: Patient was given Aspirin, IV heparin gtts, Plavix load and supplimental O2 as per guidelines. IV fluids were given to maintain BP, in setting of RV involvement. Patient remained hemodynamically stable with no sig arrhythmias and was transferred to [facility] paint laboratory technician emergently for PCI. As per Dr. Zambrano, who has received report, acute prox RCA lesion successfully stented. 45 minutes spent in reviewing history, physical exam, acute orders and assisting EMS in the stable transfer of this patient.
--- NOTE | 2019-01-29 11:14 | EKG ---
Test Reason : Blood Pressure : / mmHG Vent. Rate : 049 BPM Atrial Rate : 091 BPM P-R Int : 000 ms QRS Dur : 100 ms QT Int : 480 ms P-R-T Axes : 000 049 079 degrees QTc Int : 433 ms JUNCTIONAL BRADYCARDIA INCREASED R/S RATIO IN V1, CONSIDER EARLY TRANSITION OR POSTERIOR INFARCT INFERIOR INJURY PATTERN ACUTE WI / STEMI Consider right ventricular involvement in acute inferior infarct ABNORMAL ECG WHEN COMPARED WITH ECG OF 19-AUG-2017 17:44, JUNCTIONAL RHYTHM HAS REPLACED SINUS RHYTHM ST NOW DEPRESSED IN LATERAL LEADS Patient emergently transferred for cath and underwent stent prox RCA Confirmed by GAYLA CUELLAR, CHAITANYA ([id number]) on 01/29/2019 11:14:33 AM Referred By: Confirmed By:CHAITANYA SHUKLA MD
== END 2019-01-29 09:01 | disposition short-term general hospital (02) ==
LOC: JER 09:41 → JERBED 12:29 → J4W 13:53
PROVIDERS: ADMIT Hospitalist; ATTEND Hospitalist
PROC: 3E033GC Introduction of Other Therapeutic Substance into Peripheral Vein, Percutaneous Approach (ICD-10-PCS; principal; 2019-01-28)
DX: I21.29 ST elevation (STEMI) myocardial infarction involving other sites (principal); R07.9 Chest pain, unspecified; I10 Essential (primary) hypertension; E11.9 Type 2 diabetes mellitus without complications; Z79.84 Long term (current) use of oral hypoglycemic drugs; L40.9 Psoriasis, unspecified; F17.210 Nicotine dependence, cigarettes, uncomplicated
CPT/HCPCS: 36415; 71046-TC-FY; 80048; 80053; 80061; 82550; 82962; 83036; 83721; 83735; 83880; 84100; 84443; 84484; 85025; 85610; 85730; 93005; 93010; 96374; 99285-25; G0378; J1644; J7030

== ENCOUNTER 2019-12-31 08:18 | Observation (INO) | payer OTHER ==
[2019-12-31 08:35] VITALS: BMI 31.0
[2019-12-31] MEDS ORDERED: ASPIRIN 81 MG CHEWABLE TABLETS PO ONE (09:47)
[2019-12-31 10:58] LABS: BASO % 0.4 % (0-2.0); EOS % 0.6 % (0-4.5); HEMATOCRIT 40.7 % (35.4-49); HEMOGLOBIN 13.6 GM/dL (11.7-16.9); LYMPH % 9.2 % (8-40); MCH 27.9 pg (25.7-33.7); MCHC 33.4 g/dl (32.0-35.9); MEAN CELL VOLUME 83.4 fl (80-96); MEAN PLT VOLUME 8.8 fl (7.5-11.1); MONO % 7.3 % (3.8-10.2); NEUT % 82.5 % (42.8-82.8); PLATELET COUNT 225 K/MM3 (134-434); RBC 4.88 M/mm3 (4.00-5.60); WHITE BLOOD COUNT 12.3 K/mm3 (4.0-10.0)
[2019-12-31] MEDS ORDERED: ASPIRIN COATED 81 MG TABLET.EC ONE (11:02)
[2019-12-31 11:10] LABS: INR 1.09 (0.83-1.09); PROTHROMBIN TIME (PATIENT) 12.9 SEC (9.7-13.0)
[2019-12-31 11:13] LABS: ACTIVATED PTT 30.8 SECONDS (25.2-36.5)
[2019-12-31 11:16] LABS: EPI CELLS 7 /uL (0-25.1); HYALINE CASTS 3 /uL (0-3.1); URINE APPEARANCE CLEAR; URINE BACTERIA 1292 /uL (0-1359); URINE BILIRUBIN NEGATIVE (NEGATIVE); URINE COLOR YELLOW; URINE GLUCOSE (UA) NEGATIVE (NEGATIVE); URINE KETONE NEGATIVE (NEGATIVE); URINE LEUK ESTERASE NEGATIVE (NEGATIVE); URINE NITRITE NEGATIVE (NEGATIVE); URINE PROTEIN 2+ (NEGATIVE); URINE RBC 12 /uL (0-23.9); URINE UROBILINOGEN 0.2 mg/dL (0.2-1.0); URINE WBC 8 /uL (0-25.8)
[2019-12-31 11:30] LABS: ALBUMIN 3.9 g/dl (3.4-5.0); ALK PHOS 69 U/L (45-117); ANION GAP 8 MMOL/L (8-16); BILIRUBIN,TOTAL 0.6 mg/dL (0.2-1); CALCIUM 8.9 mg/dL (8.5-10.1); CHLORIDE 107 mmol/L (98-107); CO2 23 mmol/L (21-32); GLUCOSE,RANDOM 124 mg/dL (74-106); POTASSIUM 3.6 mmol/L (3.5-5.1); SGOT/AST 27 U/L (15-37); SGPT/ALT 42 U/L (13-61); SODIUM 137 mmol/L (136-145); TOT PROT 7.7 g/dl (6.4-8.2)
[2019-12-31] MEDS ORDERED: CEFTRIAXONE 1 GM in DEXTROSE 5%-WATER - 100 ML IVPB ONE (11:41)
[2019-12-31] MEDS ORDERED: CEFTRIAXONE 1 GM/50 ML BAG ONE (11:57)
[2019-12-31] MEDS ORDERED: ATORVASTATIN CA 10 MG TABLET (FP) ONE (22:27)
[2019-12-31] MEDS ORDERED: HEPARIN NA (PORCINE) 5,000 UNITS/ML 1ML VIAL ONE (22:27)
[2020-01-01] MEDS: HEPARIN NA (PORCINE) 5,000 UNITS/ML 1ML VIAL SQ SCH ×3 (02:24→21:00)
[2020-01-01] MEDS: ATORVASTATIN CA 10 MG TABLET (FP) PO SCH ×2 (02:25→21:00)
[2020-01-01 06:45] LABS: BASO % 0.6 % (0-2.0); EOS % 2.4 % (0-4.5); HEMATOCRIT 37.5 % (35.4-49); HEMOGLOBIN 12.9 GM/dL (11.7-16.9); MCH 28.5 pg (25.7-33.7); MCHC 34.3 g/dl (32.0-35.9); MEAN PLT VOLUME 8.9 fl (7.5-11.1); MONO % 9.7 % (3.8-10.2); NEUT % 74.3 % (42.8-82.8); PLATELET COUNT 207 K/MM3 (134-434); RBC 4.51 M/mm3 (4.00-5.60); RDW 14.9 % (11.9-15.9); WHITE BLOOD COUNT 9.4 K/mm3 (4.0-10.0)
[2020-01-01 07:12] LABS: ALBUMIN 3.3 g/dl (3.4-5.0); BILIRUBIN,TOTAL 0.6 mg/dL (0.2-1); CALCIUM 8.6 mg/dL (8.5-10.1); CREATININE 0.8 mg/dL (0.55-1.3); POTASSIUM 3.4 mmol/L (3.5-5.1); TOT PROT 6.9 g/dl (6.4-8.2)
[2020-01-01] MEDS ORDERED: PT OWN MED DRAWER 7, Y5N ONE ×3 (08:30→09:32)
[2020-01-01] MEDS ORDERED: cefTRIAXone SODIUM 1 GM VIAL ONE (08:30)
[2020-01-01] MEDS ORDERED: DEXTROSE 5%-WATER - 50 ML IVPB ONE (08:30)
[2020-01-01] MEDS: TAMSULOSIN HCL 0.4 MG CAP PO SCH (09:09)
[2020-01-01] MEDS: ASPIRIN COATED 81 MG TABLET.EC PO SCH (09:09)
[2020-01-01] MEDS: FOLIC ACID 1 MG TABLET (FP) PO SCH (09:09)
[2020-01-01] MEDS: amLODIPine BESYLATE 10 MG TABLET (FP) PO SCH (09:10)
[2020-01-01] MEDS: LISINOPRIL 20 MG TABLET PO SCH (09:10)
[2020-01-01] MEDS: CLOPIDOGREL BISULFATE 75 MG TABLET (FP) PO SCH (09:10)
[2020-01-01] MEDS ORDERED: POTASSIUM CHLORIDE TABS 20 MEQ TABLET.ER (FP) PO ONE (09:30)
[2020-01-01] MEDS ORDERED: CEFTRIAXONE 1 GM in DEXTROSE 5%-WATER - 50 ML IVPB SCH (10:00)
[2020-01-01] MEDS ORDERED: PATIENT'S OWN MEDICATION (NON-FORMULARY) (Oxycodone Hcl [Oxycodone Hcl] 30 MG) PO PRN (19:39)
[2020-01-01] MEDS: oxyCODONE HCL 5 MG TABLET PO PRN (20:51)
[2020-01-02] MEDS: oxyCODONE HCL 5 MG TABLET PO PRN (06:08)
[2020-01-02 06:48] LABS: BASO % 0.7 % (0-2.0); EOS % 4.2 % (0-4.5); HEMATOCRIT 37.1 % (35.4-49); HEMOGLOBIN 12.4 GM/dL (11.7-16.9); LYMPH % 19.9 % (8-40); MCH 27.9 pg (25.7-33.7); MCHC 33.4 g/dl (32.0-35.9); MEAN CELL VOLUME 83.6 fl (80-96); MONO % 8.3 % (3.8-10.2); NEUT % 66.9 % (42.8-82.8); PLATELET COUNT 224 K/MM3 (134-434); RBC 4.44 M/mm3 (4.00-5.60); WHITE BLOOD COUNT 8.1 K/mm3 (4.0-10.0)
[2020-01-02 07:17] LABS: ALBUMIN 3.3 g/dl (3.4-5.0); BILIRUBIN,TOTAL 0.4 mg/dL (0.2-1); BLOOD UREA NITROGEN 16.8 mg/dL (7-18); CALCIUM 8.9 mg/dL (8.5-10.1); CREATININE 0.8 mg/dL (0.55-1.3); POTASSIUM 4.1 mmol/L (3.5-5.1); TOT PROT 6.7 g/dl (6.4-8.2)
[2020-01-02] MEDS ORDERED: DEXTROSE 5%-WATER - 50 ML IVPB ONE (08:59)
[2020-01-02] MEDS ORDERED: PT OWN MED DRAWER 7, Y5N ONE (08:59)
[2020-01-02] MEDS ORDERED: cefTRIAXone SODIUM 1 GM VIAL ONE (08:59)
[2020-01-02] MEDS: FOLIC ACID 1 MG TABLET (FP) PO SCH (09:39)
[2020-01-02] MEDS: ASPIRIN COATED 81 MG TABLET.EC PO SCH (09:39)
[2020-01-02] MEDS: HEPARIN NA (PORCINE) 5,000 UNITS/ML 1ML VIAL SQ SCH (09:39)
[2020-01-02] MEDS: CLOPIDOGREL BISULFATE 75 MG TABLET (FP) PO SCH (09:39)
[2020-01-02] MEDS: LISINOPRIL 20 MG TABLET PO SCH (09:39)
[2020-01-02] MEDS: TAMSULOSIN HCL 0.4 MG CAP PO SCH (09:39)
[2020-01-02] MEDS: amLODIPine BESYLATE 10 MG TABLET (FP) PO SCH (09:39)
[2020-01-02] MEDS ORDERED: metoPROLOL SUCCINATE 25 MG TAB.SR.24H (FP) PO SCH (10:00)
[2020-01-02 10:46] VITALS: BP 111/67; PULSE 66; TEMP 97.8
== END 2020-01-02 11:00 | disposition home or self-care (01) ==
LOC: JER 08:18 → INTOOBSV 12:10 → JERBED 12:10 → J4S 22:56
PROVIDERS: ADMIT Internal Medicine; ATTEND Internal Medicine
PROC: 3E03329 Introduction of Other Anti-infective into Peripheral Vein, Percutaneous Approach (ICD-10-PCS; principal; 2019-12-31)
PROC: 3E013GC Introduction of Other Therapeutic Substance into Subcutaneous Tissue, Percutaneous Approach (ICD-10-PCS; 2019-12-31)
DX: R07.89 Other chest pain (principal); N39.0 Urinary tract infection, site not specified; I10 Essential (primary) hypertension; E78.5 Hyperlipidemia, unspecified; E66.9 Obesity, unspecified; Z68.31 Body mass index [BMI] 31.0-31.9, adult; I25.10 Atherosclerotic heart disease of native coronary artery without angina pectoris; I25.2 Old myocardial infarction; L40.9 Psoriasis, unspecified; F17.210 Nicotine dependence, cigarettes, uncomplicated; Z79.82 Long term (current) use of aspirin; Z79.84 Long term (current) use of oral hypoglycemic drugs; Z79.02 Long term (current) use of antithrombotics/antiplatelets; Z95.5 Presence of coronary angioplasty implant and graft
CPT/HCPCS: 36415; 71046-TC-FY; 80053; 81003; 82550; 83036; 83735; 84484; 85025; 85610; 85730; 87086; 93005; 93010; 96365; 96372; 96375; 99285-25; G0378; J1644; U0003

== ENCOUNTER 2021-05-18 14:31 | Emergency (ER) | payer OTHER ==
[2021-05-18 15:48] VITALS: BP 122/58; PULSE 58; TEMP 98; BMI 28.0
[2021-05-18 17:05] LABS: EPI CELLS 4 /uL (0-25.1); HYALINE CASTS 1 /uL (0-3.1); URINE APPEARANCE CLEAR; URINE BACTERIA 3 /uL (0-1359); URINE BILIRUBIN NEGATIVE (NEGATIVE); URINE COLOR YELLOW; URINE GLUCOSE (UA) NEGATIVE (NEGATIVE); URINE KETONE NEGATIVE (NEGATIVE); URINE LEUK ESTERASE 1+ (NEGATIVE); URINE NITRITE NEGATIVE (NEGATIVE); URINE PROTEIN 1+ (NEGATIVE); URINE RBC 5 /uL (0-23.9); URINE UROBILINOGEN 0.2 mg/dL (0.2-1.0); URINE WBC 77 /uL (0-25.8)
== END 2021-05-18 18:45 | disposition home or self-care (01) ==
LOC: JER 14:31
DX: N30.00 Acute cystitis without hematuria (principal)
CPT/HCPCS: 81003; 87086; 99283-25

== ENCOUNTER 2021-07-20 12:51 | Emergency (ER) | payer OTHER ==
[2021-07-20 13:02] VITALS: BP 104/72; PULSE 80; TEMP 98.9; BMI 28.1
[2021-07-20 14:39] LABS: EPI CELLS 7 /uL (0-25.1); HYALINE CASTS 3 /uL (0-3.1); PH,URINE 5.5 (5.0-8.0); URINE APPEARANCE CLEAR; URINE BACTERIA 8 /uL (0-1359); URINE BILIRUBIN NEGATIVE (NEGATIVE); URINE COLOR YELLOW; URINE GLUCOSE (UA) NEGATIVE (NEGATIVE); URINE KETONE TRACE (NEGATIVE); URINE LEUK ESTERASE TRACE (NEGATIVE); URINE NITRITE NEGATIVE (NEGATIVE); URINE PROTEIN 2+ (NEGATIVE); URINE RBC 24 /uL (0-23.9); URINE UROBILINOGEN 0.2 mg/dL (0.2-1.0); URINE WBC 11 /uL (0-25.8)
== END 2021-07-20 15:09 | disposition home or self-care (01) ==
LOC: JERFT 12:51
DX: R35.0 Frequency of micturition (principal); E11.9 Type 2 diabetes mellitus without complications
CPT/HCPCS: 81003; 82962; 87086; 99283-25

== ENCOUNTER 2022-01-23 14:16 | Emergency (ER) | payer OTHER ==
[2022-01-23 14:28] VITALS: BP 129/76; PULSE 74; TEMP 98; BMI 29.0
[2022-01-23] MEDS ORDERED: FLUTICASONE PROP 0.05% 16 GM NASAL SPRAY NS ONE (15:27)
[2022-01-23 15:35] LABS: BASO % 0.9 % (0-2.0); EOS % 3.6 % (0-4.5); HEMATOCRIT 39.4 % (35.4-49); HEMOGLOBIN 13.2 GM/dL (11.7-16.9); LYMPH % 17.2 % (8-40); MCH 27.7 pg (25.7-33.7); MCHC 33.6 g/dl (32.0-35.9); MEAN CELL VOLUME 82.6 fl (80-96); MONO % 6.7 % (3.8-10.2); NEUT % 71.6 % (42.8-82.8); PLATELET COUNT 287 10^3/uL (134-434); RBC 4.76 M/mm3 (4.00-5.60); RDW 13.9 % (11.9-15.9)
[2022-01-23 15:40] LABS: EPI CELLS 4 /uL (0-25.1); HYALINE CASTS 1 /uL (0-3.1); URINE APPEARANCE CLEAR; URINE BACTERIA 0 /uL (0-1359); URINE BILIRUBIN NEGATIVE (NEGATIVE); URINE COLOR YELLOW; URINE GLUCOSE (UA) NEGATIVE (NEGATIVE); URINE KETONE NEGATIVE (NEGATIVE); URINE LEUK ESTERASE NEGATIVE (NEGATIVE); URINE NITRITE NEGATIVE (NEGATIVE); URINE PROTEIN 2+ (NEGATIVE); URINE RBC 6 /uL (0-23.9); URINE UROBILINOGEN 0.2 mg/dL (0.2-1.0); URINE WBC 4 /uL (0-25.8)
[2022-01-23] MEDS ORDERED: AZITHROMYCIN 250 MG TABLET PO ONE (15:53)
[2022-01-23] MEDS ORDERED: SODIUM CHLORIDE FOR INHALATION 3 ML VIAL.NEB IH ONE (15:56)
[2022-01-23 15:58] LABS: CALCIUM 8.9 mg/dL (8.5-10.1)
[2022-01-23 15:59] LABS: ALBUMIN 3.9 g/dl (3.4-5.0); BLOOD UREA NITROGEN 26.6 mg/dL (7-18)
[2022-01-23] MEDS ORDERED: AZITHROMYCIN 500 MG TABLET ONE (16:00)
[2022-01-23 16:02] LABS: CREATININE 1.1 mg/dL (0.55-1.3)
[2022-01-23 16:04] LABS: BILIRUBIN,TOTAL 0.4 mg/dL (0.2-1); TOT PROT 7.4 g/dl (6.4-8.2)
== END 2022-01-23 16:11 | disposition home or self-care (01) ==
LOC: JER 14:16
DX: J01.90 Acute sinusitis, unspecified (principal); N23 Unspecified renal colic; R80.9 Proteinuria, unspecified
CPT/HCPCS: 0241U-QW; 36415; 80053; 81003; 85025; 87086; 99283-25

== ENCOUNTER 2023-03-12 09:29 | Emergency (ER) | payer OTHER ==
[2023-03-12 09:36] VITALS: BP 145/80; PULSE 61; RESP 18; TEMP 98.3; BMI 30.3
[2023-03-12] MEDS ORDERED: LIDOCAINE 5% TOPICAL PATCH TP ONE (10:20)
[2023-03-12] MEDS ORDERED: ACETAMINOPHEN 500 MG TABLET (FP) ONE (10:23)
[2023-03-12] MEDS ORDERED: LIDOCAINE 5% TOPICAL PATCH ONE (10:29)
[2023-03-12] MEDS ORDERED: LIDOCAINE PATCH REMOVAL MC ONE (22:00)
== END 2023-03-12 11:22 | disposition home or self-care (01) ==
LOC: JERFT 09:29
DX: M25.551 Pain in right hip (principal); M76.31 Iliotibial band syndrome, right leg; X50.0XXA Overexertion from strenuous movement or load, initial encounter; Y93.01 Activity, walking, marching and hiking; Y92.828 Other wilderness area as the place of occurrence of the external cause
CPT/HCPCS: 73502-TC-RT-FY